=== PATIENT | female | born 1960 | race Caucasian/White ===

== ENCOUNTER 2020-04-01 15:31 | Outpatient (CLI) | payer OTHER, SELFPAY ==
--- NOTE | ~2020-04-01 | MM_ITS ---
EXAMINATION: MM screening [facility] BI w vini HISTORY: Screening mammogram TECHNIQUE: Craniocaudal and mediolateral oblique 3-D tomosynthesis images were obtained and synthetic 2-D images were generated. CAD analysis was submitted and interpreted. COMPARISON: 08/29/2017, 04/23/2015 bilateral digital screening mammogram examinations BREAST PARENCHYMAL COMPOSITION: The breasts are almost entirely fatty. FINDINGS: New circumscribed 3 mm opacity is noted anteriorly in the mid inner right breast (craniocau roxie Tomosynthesis image 30/76). Diagnostic right mammogram is recommended, with targeted ultrasound c orrelation. Otherwise there is no evidence of suspicious mass, calcification, or architectural distortion to sugg est malignancy in either breast. There has been no other suspicious interval change. IMPRESSION: 1. New 3 mm circumscribed opacity in anterior mid inner right breast 2. Diagnostic right mammogram and targeted right breast ultrasound examination are recommended. BI-RADS Category 0: Incomplete: Needs additional imaging evaluation. Reviewed, dictated and finalized at location A.
--- NOTE | ~2020-04-01 | DEXA_ITS ---
Bone Density Report Name: Dariana Valverde Age: 59 Sex: Female Ethnicity: White Date of : 1960 Indication: osteopenia; postmenopausal Referring Provider: Radha Woo Study: Bone densitometry was performed. Exam Date: April 01, 2020 Accession number: [id number] Bone Density: Region BMD T-score Z-score Classification AP Spine (L1-L4) 0.819 -2.1 -0.7 Osteopenia Femoral Neck (Left) 0.771 -0.7 0.5 Normal Total Hip (Left) 0.840 -0.8 0.0 Normal Total Hip Bilateral Avg 0.832 -0.9 -0.1 Normal Femoral Neck (Right) 0.703 -1.3 -0.1 Osteopenia Total Hip (Right) 0.822 -1.0 -0.1 Normal World Health Organization criteria for BMD impression classify patients as: Normal (T-score at or above -1.0), Osteopenia (T-score between -1.0 and -2.5), or Osteoporosis (T-score at or below -2.5). 10-year Fracture Risk(1): Major Osteoporotic Fracture 6.9% Hip Fracture 0.8% Reported Risk Factors: [place] (), Neck BMD=0.703, BMI=31.8, smoking (1) FRAX(R) Version 3.08. Fracture probability calculated for an untreated patient. Fracture probability may be lower if the patient has received treatment. Previous Exams: Region Exam Age BMD T-score BMD Change BMD Change Date g/cm2 vs Baseline vs Previous AP Spine(L1-L4) 04/01/2020 59 0.819 -2.1 -0.083(-9.2%)* -0.011(-1.3%) 08/29/2017 57 0.830 -2.0 -0.072(-8.0%)* -0.072(-8.0%)* 04/23/2015 54 0.902 -1.3 Total Hip(Left) 04/01/2020 59 0.840 -0.8 -0.016(-1.8%) 0.023(2.8%) 08/29/2017 57 0.817 -1.0 -0.039(-4.5%)* -0.039(-4.5%)* 04/23/2015 54 0.856 -0.7 Total Hip(Right) 04/01/2020 59 0.822 -1.0 0.001(0.1%) 0.009(1.1%) 08/29/2017 57 0.813 -1.1 -0.008(-1.0%) -0.008(-1.0%) 04/23/2015 54 0.822 -1.0 *Denotes significance at 95% confidence level, LSC for AP Spine = 0.022 g/cm2, LSC for Total Hip = 0.027 g/cm2 Clinical Information Provided by Patient: Smokes Has used the following medications: Vitamin D, Calcium Patient maximum height was 68 Menopause Age: 53 Drinks caffeinated beverages Onset of menses at age 13 Number of children 3 Impression: The patient has low bone mass, based on the Total Spine T-score. The patient has an estimated ten-year risk of hip fracture of 0.8% and an estimated ten-year risk of major fracture of 6.9%, based on the WHO FRAX algorithm. The patient has risk factors, including: smoking. No significant bone loss was observed. Discus
== END 2020-04-01 15:32 | disposition home or self-care (01) ==
LOC: ANHIMG 15:37
PROVIDERS: PCP Family Medicine; Visit Provider Obstetrics & Gynecology
DX: Z12.31 Encounter for screening mammogram for malignant neoplasm of breast (principal); M85.88 Other specified disorders of bone density and structure, other site; R92.8 Other abnormal and inconclusive findings on diagnostic imaging of breast
CPT/HCPCS: 77063; 77067; 77080

== ENCOUNTER 2020-04-14 11:20 | Outpatient (CLI) | payer OTHER, SELFPAY ==
--- NOTE | ~2020-04-14 | CT_ITS ---
EXAMINATION: CT sinus wo con DATE: 04/14/2020 12:06 INDICATION: Chronic sinusitis TECHNIQUE: Computed tomography (CT) of the paranasal sinuses was performed without intravenous contra st. The dose-length product was 295.93 mGy-cm. Automated exposure control and iterative reconstructio n technique were employed. COMPARISON: None FINDINGS: There is extensive mucosal thickening of the right maxillary sinus with complete opacificat ion in the mucoperiosteal reaction. There is expansion of the maxillary sinus with occlusion of the r ight ostiomeatal unit. There is mucosal thickening of the right ethmoid and frontal sinuses. Mastoids are pneumatized. Leftward nasal septal deviation. Left ostiomeatal unit is patent. IMPRESSION: 1. Chronic sinusitis with complete opacification of the right maxillary sinus with associated mucoper iosteal reaction and occlusion of the ostiomeatal unit. Reviewed, dictated and finalized at location B. IMPRESSION: 1. Chronic sinusitis with complete opacification of the right maxillary sinus w ith associated mucoperiosteal reaction and occlusion of the ostiomeatal unit.
== END 2020-04-14 11:21 | disposition home or self-care (01) ==
PROVIDERS: PCP Family Medicine
DX: J32.9 Chronic sinusitis, unspecified (principal)
CPT/HCPCS: 70486

== ENCOUNTER 2020-04-23 12:31 | Outpatient (CLI) | payer OTHER, SELFPAY ==
--- NOTE | ~2020-04-23 | MMUS_ITS ---
EXAMINATION: MM diagnostic mammo unilat RT, US breast RT limited HISTORY: Follow-up right breast mass TECHNIQUE: Additional 3-D tomosynthesis images of the right breast were performed and synthetic 2-D i mages were generated. CAD analysis was submitted and interpreted. High resolution right breast ultras ound was performed. COMPARISON: 04/01/2020 BREAST PARENCHYMAL COMPOSITION: Breast composed of scattered areas of fibroglandular density FINDINGS: MAMMOGRAPHIC FINDINGS: There is a focal mass measuring 5 mm maximum dimension at the 3:00 position of the right breast, midd le third. ULTRASOUND: Right breast ultrasound: At 3:00, 5 cm from the nipple, there is a 5 mm cyst corresponding to the mammographic finding. No cristian picious masses to suggest malignancy. IMPRESSION: 1. No evidence for malignancy in the right breast. Benign findings. 2. Routine yearly screening mammogram and regular clinical breast examination are recommended. BI-RADS Category 2: Benign finding(s). Reviewed, dictated and finalized at location A. IMPRESSION: 1. No evidence for malignancy in the right breast. Benign findings. 2. Routine yearly screening mammogram and regular clinical breast examination a re recommended. BI-RADS Category 2: Benign finding(s).
== END 2020-04-23 12:32 | disposition home or self-care (01) ==
PROVIDERS: PCP Family Medicine; Visit Provider Obstetrics & Gynecology
DX: R92.8 Other abnormal and inconclusive findings on diagnostic imaging of breast (principal)
CPT/HCPCS: 76642; 77065

== ENCOUNTER 2021-04-03 11:23 | Emergency (ER) | payer OTHER, SELFPAY ==
[2021-04-03 11:27] VITALS: BP 152/93; PULSE 66; RESP 18; TEMP 36.9; O2SAT 99
--- NOTE | 2021-04-03 11:52 | ED.SKABFB ---
HPI - Skin/Abscess/Foreign Bdy General Chief complaint: Skin/Abscess/Foreign Body Stated complaint: insect bite low abd Time Seen by Provider: 04/03/21 11:44 Source: patient Mode of arrival: ambulatory Limitations: no limitations History of Present Illness HPI narrative: Patient is a 60-year-old female complaining of possible insect bite in the pubis area, redness and mild swelling started 4 days ago. Patient denies any fever or chills. Patient denies any extremity swelling. No other complaints. Related Data Allergies Allergy/AdvReac Type Severity Reaction Status Date / Time morphine Allergy Intermediate ITCHING Verified 04/03/21 11:30 latex Allergy Unknown Redness of Verified 04/03/21 11:30 Skin Penicillins Allergy Unknown Rash Verified 04/03/21 11:30 Sulfa (Sulfonamide Allergy Unknown Unknown Verified 04/03/21 11:30 Antibiotics) Review of Systems Review of Systems: All systems reviewed & are unremarkable except as noted in HPI and below PMFSH Family History Family History Father Family history of malignant neoplasm Mother Family history of diabetes mellitus in first degree relative Family history of heart disease in male family member before age 55 Social History Social History Smoking status: Former smoker Smoking end date: 10/01/87 Alcohol intake: current Comments Past medical history: None Exam Const: General: no acute distress and alert Orientation/consciousness: patient oriented x3 HENMT: Head: normal to inspection Eyes: Conjunctivae: conjunctivae normal Neck: Neck: normal visual inspection Resp: Effort & Inspection: normal respiratory effort Skin: Other: Erythematous, swollen, mildly tender area measuring approximately 3 x 4 cm, nonfluctuant Neuro: General: patient oriented x3 and moves all extremities Extrem: General: normal to inspection Course Vital Signs Vital signs: Vital Signs Temperature 36.9 C 04/03/21 11:27 Pulse Rate 66 04/03/21 11:27 Respiratory Rate 18 04/03/21 11:27 Blood Pressure 152/93 H 04/03/21 11:27 Pulse Oximetry 99 04/03/21 11:27 Temperature 36.9 C 04/03/21 11:27 Pulse Rate 66 04/03/21 11:27 Respiratory Rate 18 04/03/21 11:27 Blood Pressure 152/93 H 04/03/21 11:27 Pulse Oximetry 99 04/03/21 11:27 Discharge Plan Discharge Clinical Impression: Cellulitis Qualifiers: Site of cellulitis: unspecified site Qualified Code(s): L03.90 - Cellulitis, unspecified Patient Disposition: Home, Self-Care Condition: Stable Instructions: Antibiotic Form, Cellulitis (ED) Prescriptions: New doxycycline monohydrate 100 mg capsule 100 mg PO BID Qty: 14 RF: 0 Follow-up/Referrals: Anamika,Denia Alberto MD [Primary Care Provider] - 04/04/21 Time of Disposition: 12:04
== END 2021-04-03 12:11 | disposition home or self-care (01) ==
PROVIDERS: Emergency Provider Emergency Medicine; PCP Family Medicine
DX: L03.90 Cellulitis, unspecified (principal)
CPT/HCPCS: 99283

== ENCOUNTER 2021-05-19 16:52 | Outpatient (CLI) | payer OTHER, SELFPAY ==
--- NOTE | ~2021-05-19 | MM_ITS ---
EXAMINATION: MM screening [facility] BI w vini HISTORY: Screening mammogram TECHNIQUE: Craniocaudal and mediolateral oblique 3-D tomosynthesis images were obtained and synthetic 2-D images were generated. CAD analysis was submitted and interpreted. COMPARISON: 04/23/2020, 04/01/2020, 08/29/2017 BREAST PARENCHYMAL COMPOSITION: The breasts are almost entirely fatty. FINDINGS: A cyst is again noted in the inner right breast. There is no evidence of suspicious mass, c alcification, or architectural distortion to suggest malignancy in either breast. There has been no s uspicious interval change. IMPRESSION: 1. No mammographic evidence of malignancy. 2. Recommend routine screening mammography in one year. BI-RADS Category 2: Benign finding(s). Reviewed, dictated and finalized at location A.
== END 2021-05-19 16:53 | disposition home or self-care (01) ==
LOC: ANHIMG 16:54
PROVIDERS: PCP Family Medicine; Visit Provider Obstetrics & Gynecology
DX: Z12.31 Encounter for screening mammogram for malignant neoplasm of breast (principal)
CPT/HCPCS: 77063; 77067

== ENCOUNTER 2022-03-16 18:54 | Emergency (ER) | payer OTHER, SELFPAY ==
[2022-03-16 19:02] VITALS: BP 150/97; PULSE 55; RESP 20; TEMP 36.7; O2SAT 98
--- NOTE | 2022-03-16 20:36 | PC.NURSE ---
no answer x1 at triage
--- NOTE | 2022-03-16 20:56 | PC.NURSE ---
no answer at triage
== END 2022-03-16 20:56 | disposition left against medical advice (07) ==
LOC: ANHED 21:00
DX: R07.81 Pleurodynia (principal)
CPT/HCPCS: 82962; 99199

== ENCOUNTER 2023-02-10 09:22 | Outpatient (CLI) | payer OTHER, SELFPAY ==
--- NOTE | ~2023-02-10 | MM_ITS ---
EXAMINATION: MM screening [facility] BI w vini HISTORY: Screening mammogram TECHNIQUE: Craniocaudal and mediolateral oblique 3-D tomosynthesis images were obtained and synthetic 2-D images were generated. CAD analysis was submitted and interpreted. COMPARISON: 05/19/2021, 04/23/2020, 04/01/2020 BREAST PARENCHYMAL COMPOSITION: The breasts are almost entirely fatty. FINDINGS: RIGHT BREAST: No suspicious mass, calcification, or architectural distortion are identified to sugges t malignancy. There has been no suspicious interval change. LEFT BREAST: There is a possible mass in the anterior third of the inner breast best appreciated and mediolateral oblique tomosynthesis image 61/91. IMPRESSION: 1. Possible left breast mass. 2. Additional mammographic views and possible breast ultrasound are recommended. BI-RADS Category 0: Incomplete: Needs additional imaging evaluation. Reviewed, dictated and finalized at location A. IMPRESSION: 1. Possible left breast mass. 2. Additional mammographic views and possible breast ultrasound are recommended . BI-RADS Category 0: Incomplete: Needs additional imaging evaluation.
== END 2023-02-10 09:23 | disposition home or self-care (01) ==
LOC: ANHIMG 09:24
PROVIDERS: PCP Physician Assistant; Visit Provider Physician Assistant
DX: Z12.31 Encounter for screening mammogram for malignant neoplasm of breast (principal); R92.8 Other abnormal and inconclusive findings on diagnostic imaging of breast
CPT/HCPCS: 77063; 77067

== ENCOUNTER 2023-02-20 11:29 | Outpatient (CLI) | payer OTHER, SELFPAY ==
--- NOTE | ~2023-02-20 | MMUS_ITS ---
EXAMINATION: MM diagnostic [facility] LT w vini, US breast LT limited HISTORY: Possible left breast mass on screening mammogram TECHNIQUE: Additional 3-D tomosynthesis images of the left breast were performed and synthetic 2-D im ages were generated. CAD analysis was submitted and interpreted. High resolution limited left breast ultrasound was performed. COMPARISON: 02/10/2023, 05/19/2021, 04/01/2020 FINDINGS: MAMMOGRAPHIC FINDINGS: There is a 4 mm oval, obscured, equal density mass in the anterior third of the inner breast at the 9 :00 location, 5 cm from the nipple. No suspicious calcification or architectural distortion are ident ified. ULTRASOUND: There is a 4 mm cyst at the 9:00 location, 3 cm from the nipple corresponding to mammographic finding in question. IMPRESSION: 1. Small left breast cyst corresponding to the mammographic finding. No mammographic or sonographic e vidence of malignancy. 2. Recommend routine screening mammography in one year. BI-RADS Category 2: Benign finding(s). Reviewed, dictated and finalized at location A. IMPRESSION: 1. Small left breast cyst corresponding to the mammographic finding. No mammogr aphic or sonographic evidence of malignancy. 2. Recommend routine screening mammography in one year. BI-RADS Category 2: Benign finding(s).
== END 2023-02-20 11:30 | disposition home or self-care (01) ==
PROVIDERS: PCP Physician Assistant; Visit Provider Physician Assistant
DX: R92.8 Other abnormal and inconclusive findings on diagnostic imaging of breast (principal)
CPT/HCPCS: 76642; 77061; 77065; G0279

== ENCOUNTER 2023-06-22 23:58 | Emergency (ER) | payer OTHER, SELFPAY | END 2023-06-23 00:28 | disposition left against medical advice (07) | PROVIDERS: PCP Physician Assistant | DX: Z53.21 Procedure and treatment not carried out due to patient leaving prior to being seen by health care provider (principal) | CPT/HCPCS: 99199 ==

== ENCOUNTER 2023-08-30 14:52 | Outpatient (CLI) | payer OTHER, SELFPAY ==
--- NOTE | ~2023-08-30 | DEXA_ITS ---
Bone Density Report Name: MIS JEAN Age: 63 Sex: Female Ethnicity: White Date of : 1960 Indication: postmenopausal; screening for osteoporosis; height loss; Referring Provider: SIMRAN, MARGARITA Patel Study: Bone densitometry was performed. Exam Date: August 30, 2023 Accession number: [id number] Bone Density: Region BMD T-score Z-score Classification AP Spine(L1-L4) 0.821 -2.1 -0.5 Osteopenia Femoral Neck (Left) 0.747 -0.9 0.5 Normal Total Hip (Left) 0.884 -0.5 0.6 Normal Femoral Neck (Right) 0.724 -1.1 0.3 Osteopenia Total Hip (Right) 0.825 -1.0 0.1 Normal Total Hip Mean 0.854 -0.8 0.4 Normal World Health Organization criteria for BMD impression classify patients as: Normal (T-score at or above -1.0), Osteopenia (T-score between -1.0 and -2.5), or Osteoporosis (T-score at or below -2.5). 10-year Fracture Risk: FRAX not reported because: Treated for osteoporosis Clinical Information Provided by Patient: Is being treated for osteoporosis Has used the following medications: Fosamax (i.e. alendronate), Vitamin D, Calcium Patient maximum height was 68 Menopause Age: 53 Drinks caffeinated beverages Onset of menses at age 13 Number of children 3 Impression: The patient has low bone mass, based on the Total Spine T-score. Discussion: It is important to ask patients whether they are taking their medications and to encourage continued and appropriate compliance with their osteoporosis therapies to reduce fracture risk. It is also important to review their risk factors and encourage appropriate calcium and vitamin D intakes, exercise, fall prevention and other lifestyle measures. Follow-Up: Consider a repeat BMD and Vertebral Fracture Assessment (VFA) exam in 2 years or sooner if medically necessary, to reassess this patient's status. Reported by: BUL on 08/30/2023 3:21:00 PM. Reviewed, dictated and finalized at location AWendy SARAH
== END 2023-08-30 14:53 | disposition home or self-care (01) ==
LOC: ANHIMG 14:58
PROVIDERS: PCP Physician Assistant; Visit Provider Nurse Practitioner Obstetrics & Gynecology
DX: M85.80 Other specified disorders of bone density and structure, unspecified site (principal); M85.88 Other specified disorders of bone density and structure, other site; M85.851 Other specified disorders of bone density and structure, right thigh
CPT/HCPCS: 77080

== ENCOUNTER 2024-03-13 09:16 | Outpatient (CLI) | payer OTHER, SELFPAY ==
--- NOTE | ~2024-03-13 | MM_ITS ---
EXAMINATION: MM screening [facility] BI w vini HISTORY: Screening TECHNIQUE: Craniocaudal and mediolateral oblique 3-D tomosynthesis images were obtained and synthetic 2-D images were generated. CAD analysis was submitted and interpreted. COMPARISON: Comparison to multiple prior studies sequentially, with oldest reviewed study dated 08/02. BREAST PARENCHYMAL COMPOSITION: Not Dense: Breast are almost entirely fatty. FINDINGS: There is no evidence of suspicious mass, calcification, or architectural distortion to sugg est malignancy in either breast. There has been no suspicious interval change. IMPRESSION: 1. No mammographic evidence of malignancy. 2. Recommend routine screening mammography in one year. BI-RADS Category 1: Negative Reviewed, dictated and finalized at location B.
== END 2024-03-13 09:17 | disposition home or self-care (01) ==
PROVIDERS: PCP Physician Assistant; Visit Provider Physician Assistant
DX: Z12.31 Encounter for screening mammogram for malignant neoplasm of breast (principal)
CPT/HCPCS: 77063; 77067

== ENCOUNTER 2025-04-16 15:20 | Outpatient (CLI) | payer OTHER, SELFPAY ==
--- NOTE | ~2025-04-16 | MM_ITS ---
EXAMINATION: MM screening radha BI w vini HISTORY: Screening TECHNIQUE: Craniocaudal and mediolateral oblique 3-D tomosynthesis images were obtained and synthetic 2-D images were generated. CAD analysis was submitted and interpreted. COMPARISON: Comparison to multiple prior studies sequentially, with oldest reviewed study dated 11/2019. BREAST PARENCHYMAL COMPOSITION: Not Dense: The breasts are almost entirely fatty. FINDINGS: There is no evidence of suspicious mass, calcification, or architectural distortion to sugg est malignancy in either breast. There has been no suspicious interval change. IMPRESSION: 1. No mammographic evidence of malignancy. 2. Recommend routine screening mammography in one year. BI-RADS Category 1: Negative Reviewed, dictated and finalized at location B.
--- OUTSIDE RECORDS SUMMARY | 2025-04-16 15:24 | XMS_ITS | Clinical Summary ---
Author Organization [facility] Address [address] [place] [id number] Care Team Providers Care Research And Evaluation Analyst Name Role Phone Unavailable Primary Care Provider Unavailabl e Social History Tobacco Use Types Packs/Day Years Used Date Smoking Tobacco: Never Assessed Comments Unknown Sex and Gender Information Value Date Recorded Sex Assigned at Not on file Legal Sex Female 12:29 PM CDT Gender Identity Not on file Sexual Orientation Not on file Plan of Treatment Health Maintenance Due Date Last Done Comments Cervical Cancer Screening Pa p Smear (Age 30 to 64) Every 3 Years 1960 Colorectal Cancer Screening Colonoscopy (10 Years) 1960 Annual Physical 1964 Hepatitis C 1979 DTaP, Tdap and Td Vaccines ( 1 - Tdap) 1980 Cervical Cancer Screening Pa p with HPV Testing (Age 30 to 64) Every 5 Years 1991 Cervical Cancer Screening with HPV 1991 Mammogram Screening 2001 Pneumococcal Vaccine: 50+ Ye ars (1 of 1 - PCV) 2011 Zoster Vaccines (1 of 2) 2011 COVID-19 Vaccine (2023-2 5 season) 2024 RSV Immunization or 60+ Years (1 - 1-dose 75+ series) 2036 Meningococcal B Vaccine Aged Out No l onger eligible based on patient's age to complete this topic Meningococcal Vaccine Aged Out No louise brittany eligible based on patient's age to complete this topic RSV Immunizations Under 20 Months Aged Out No longer eligible based on patient's age to complete this topic Insurance [employer]
--- OUTSIDE RECORDS SUMMARY | 2025-04-16 15:24 | XMS_ITS | Encounter Summary ---
Author Organization [facility] Address [address] [place] [address] Care Team Providers Care Biomedical Analytical Scientist Name Role Phone Kadeem Hernandez MD Primary Care Provider Un available Baljeet Beverly RDMS Primary Care Provider U navailKadeem Cline MD Primary Care Provider Un available Denia Beverly MD Primary Care Provider [phone]- [phone] Malissa Mercedes PA-C Primary Care Provider [phone] Abisai Castillo MD Unavailable [phone] Reason for Visit * Reason Onset Date Comments Future Appointment 03/20/2019 Encounter Details Date Type Department Care Team (Late st Contact Info) Description 03/20/2019 Telephone [facility] [address] [address] Jose Lubin MD [address] [place] [address] Future Appointment Social History Tobacco Use Types Packs/Day Years Used Date Smoking Tobacco: Never Assessed Comments Unknown Sex and Gender Information Value Date Recorded Sex Assigned at Not on file Legal Sex Female 8:06 AM CDT Gender Identity Not on file Sexual Orientation Not on file documented as of this encounter Miscellaneous Notes * Telephone Encounter - Beatris Amato - 03/20/2019 1:09 PM CDT Called patient to remind her to bring her audio gram to her appointment tomorrow 03/[address] Lubin. If the patient has not had a hearing test within the last 3 months, the appointment will need to be rescheduled. documented in this encounter Plan of Treatment Upcoming Encounters Date Type Department Care Team (Late st Contact Info) Description 05/05/2025 1:30 PM CDT Office Visit [facility] [address] [facility] [address] [place] [phone] Kenya Cruz, RIM TURNING MACHINE OPERATOR-JANITORIAL MANAGER [address] [facility] [address] [place], [place] [id number] 05/05/2025 2:30 PM CDT Office Visit [facility] Weight Management Services [address] [place] [phone] Aura Castillo, RIM TURNING MACHINE OPERATOR-JANITORIAL MANAGER [address] [place] [address] documented as of this encounter Visit Diagnoses Not on filedocumented in this encounter Additional Health Concerns Infection Onset Date Last Indicated Resolved Time COVID-19 Under Investigation 05/21/2020 05/21/2020 05/22/2020 3:59 PM CDT documented as of this encounter Care Teams Biomedical Analytical Scientist Relationship Specialty Start Date End Date Kadeem Hernandez MD PCP - General 01/27/19 07/20/20 Baljeet Beverly, [facility] PCP - General 07/21/20 Kadeem Hernandez MD PCP - General 07/26/20 08/04/20 Denia Beverly MD [address] [place] [phone] PCP - General Family Medicine 12/02/20 07/26/23 Malissa Mercedes PA-C [address] [place] [phone] PCP - General 07/27/23 Abisai Castillo MD [address] [facility] [address] [place] [address] Cardiovascular Disease 10/03/24 documented as of this encounter
--- OUTSIDE RECORDS SUMMARY | 2025-04-16 15:24 | XMS_ITS | Clinical Summary ---
Author Organization [facility] Address [address] [place] [id number] Care Team Providers Care Inspector Government Property Name Role Phone Unknown, Notinfile Primary Care Provider Unavail able Allergies Active Allergy Reactions Criticality Noted Date Comments Adhesive Rash Medium 05/24/2020 Paper tape OK Latex Rash Medium 05/21/2020 Meclizine Other (See comments) Low 06/28/2019 Extreme fatigue/sleep Extreme fatigue/sleep Extreme fatigue/sleep Penicillins Hives,Other (See comments),Urticaria Medium 03/26/2015 Other reaction(s): Other (see Comments), Urticaria Sulfa (Sulfonamide Antibiotics) Hives,Rash,Other (See comments) High 03/26/2015 Henoch-Schonlein purpura Other reaction(s): Other (see Comments) Henoch-Schonlein purpura Medications diltiaZEM CD (CARDIZEM CD) 360 mg 24 hr capsuleIndicati ons:hypertensio n Take 360 mg by mouth every morning Active cholecalciferol (VITAMIN D-3) 25 mcg (1,000 unit) tabletIndicatio ns:Vitamin D Deficiency Take 1,000 Units by mouth every morning Active alendronate (FOSAMAX) 70 mg tabletIndicatio ns:Post-Menopau betty Osteoporosis,Sa 's Take 70 mg by mouth every 7 days 2 Active semaglutide (OZEMPIC) 0.25 mg or 0.5 mg(2 mg/1.5 mL) pen injector injectionIndica tions:sunday for weight loss Inject 0.25 mg under the skin every 7 days Active prednisoLONE acetate (PRED FORTE) 1 % ophthalmic suspension Administer 1 drop into the right eye 4 (four) times a day 10 mL 1 2 Active ergocalciferol (VITAMIN D) 50,000 unit capsule Take 50,000 Units by mouth 2 Active losartan (COZAAR) 50 mg tablet Take 1 tablet (50 mg total) by mouth every morning 3 Active Active Problems Problem Noted Date Diagnosed Date Pseudophakia of both eyes 08/01/2023 Assessment & Plan (08/01/2023 12:41 PM CDT): Mild PCO OU, excellent BCVA sc OU Patient very happy with vision Patient to RTC for full exam, educated on importance S/P cataract extraction and insertion of intraocular lens, right 03/30/2022 Assessment & Plan (05/03/2022 10:57 AM CDT): POM #1 s/p CE/PCIOL Doing well, patient happy with vision finish pred forte taper Reviewed signs/symptoms endophthalmitis, RT/RD; patient to call immediately if any worsening vision, pain, redness, flashes/floaters/curtains. Released SRx today RTC for annual exam, PRN with issues Assessment & Plan (04/12/2022 7:51 AM CDT): POW #2 s/p CE/PCIOL OD - Doing well - D/C ofloxacin in 1 week - Taper prednisolone QID -> TID -> BID -> qday, per week - Reviewed signs/symptoms endophthalmitis, RT/RD; patient to call immediately if any worsening vision, pain, redness, flashes/floaters/curtains. - Okay to resume all activities, except refrain from swimming for one more week. Okay to discontinue Lee shield at night. - RTC 1 month for DFEx, MRx Assessment & Plan (03/30/2022 8:51 AM CDT): POD #1 s/p CE/PCIOL Doing well Prednisolone QID Ofloxacin QID Reviewed signs/symptoms endophthalmitis, RT/RD; patient to call immediately if any worsening vision, pain, redness, flashes/floaters/curtains No lifting/bending/swimming. Lee shield while sleeping, protective eyewear during day. RTC 1 week or PRN with problems Anisometropia 03/21/2022 Assessment & Plan (03/21/2022 10:58 AM CDT): Has right eye (OD) cataract extraction (CE)/IOL scheduled S/P cataract extraction and insertion of intraocular lens, left 02/09/2022 Assessment & Plan (03/21/2022 10:57 AM CDT): Excellent results. 1-mo PO Assessment & Plan (03/03/2022 2:21 PM CDT): NO evidence of infection today. The posterior chamber intraocular lens (PCIOL) is in good position, intraocular pressure (IOP) normotensive. No anterior chamber (AC) Rxn or vitreous cell/flare. Educated to continue Pred taper as instructed and to continue Systane tears. Educated discharge may be from left over medication in eye. No need for Ofloxacin at this point. Patient is also symptomatic for PVD left eye (OS). No retinal holes/tears/detachments noted. Educated on findings and will monitor. Educated on symptoms of retinal changes (increase in floaters, flashes, or curtain over vision and to RTC STAT or go to ED should occur). Will fax note to Dr. Love. Assessment & Plan (02/20/2022 11:45 AM CDT): POW #1 s/p CE/PCIOL OS - Doing well - D/C ofloxacin in 1 week - Taper prednisolone QID -> TID -> BID -> qday, per week - Reviewed signs/symptoms endophthalmitis, RT/RD; patient to call immediately if any worsening vision, pain, redness, flashes/floaters/curtains. - Okay to resume all activities, except refrain from swimming for one more week. Okay to discontinue Lee shield at night. - RTC 1 month for DFEx, MRx Assessment & Plan (02/09/2022 10:32 AM CDT): PO1D cataract extraction (CE)/PCIOL left eye (OS) The posterior chamber intraocular lens (PCIOL) is in good position, intraocular pressure (IOP) normotensive Educated on restrictions- no lifting/bending and to wear shield when sleeping. Will use Pred and Ofloxacin QID left eye (OS). 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 Pt desires cornea evaluation to discuss possible procedures to address irregular astigmatism. I reviewed with her the use of RGP after cataract surgery and to continue surface lubrication. Accommodative dysfunction 07/06/2020 Assessment & Plan (08/03/2020 10:10 AM BARK FITTER): Prefers over-minused Rx - can wear as SV for reading - trial framed multiple times today. Assessment & Plan (07/06/2020 10:33 AM CDT): Stop cyclogyl due to ESTRELLA/eyestrain. Pt most comfortable with -3.00 DS both eyes (OU) with base-in prism (BI) prism - recommend PAL for computer (trial frames this as well - happy with +2.25 add). Exophoria of both eyes 04/05/2020 Assessment & Plan (04/05/2020 3:04 PM CDT): Significant improvement with base-in prism (BI) prism both eyes (OU). Will Rx 3^ base-in prism (BI) split. Pt ed on adaptation to the Rx. Convergence insufficiency 04/05/2020 Assessment & Plan (04/05/2020 3:06 PM CDT): Pt ed. Rx prism both eyes (OU). S/P LASIK surgery of both eyes 04/05/2020 Assessment & Plan (08/16/2023 12:39 PM BARK FITTER): Patient deferred DFE today, educated on importance Tr PCO OU RTC for annual exam Assessment & Plan (12/07/2021 11:09 AM BARK FITTER): As mentioned previously, likely multi-facorial decrease in visual acuity (VA) both eyes (OU) BCVAwith scleral lens not significantly better than habitual soft contact lens (CL) with Dr. Muro. It is possible patient would still need gas permeable (GP) contact lens (CL) after surgery due to corneal irregularities. Assessment & Plan (07/26/2021 11:52 AM CDT): See above Assessment & Plan (07/13/2021 11:40 AM CDT): See above Assessment & Plan (11/03/2020 2:10 PM BARK FITTER): Update MRx - prefers small change for imed/computer Assessment & Plan (04/05/2020 3:06 PM CDT): Likely experiencing some abberations post LASIK (no e/o ectasia both eyes (OU) on Pentacam today). Will see how she does with the new glasses first- can consider Zenlens fitting in the future- oblate curve both eyes (OU) - she is interested. Dry eye syndrome of both eyes 01/23/2020 Assessment & Plan (08/16/2023 12:38 PM BARK FITTER): Patient states subjectively much improved since plug placement inferior Mild ABMD OU Continue artificial tears PRN RTC PRN Assessment & Plan (08/01/2023 12:40 PM CDT): Replaced punctal plug OS today, patient does think this helps with dryness Continue artificial tears PRN PRN with issues Assessment & Plan (03/21/2022 10:57 AM CDT): Ct systane prn Assessment & Plan (09/12/2021 6:00 PM BARK FITTER): She is status post (s/p) punctal plugs OU. Add hot compresses with lid scrubs to alleviate crusting of lashes and improve meibomian gland dysfunction (MGD). Recommend trail of lubricant eye drops 4 times/day. If still symptomatic,consider lid scrubs with Johnsons baby shampoo or with Ocusoft scrubs. Assessment & Plan (05/03/2021 1:56 PM CDT): Inserted new pplug right eye (OD) (0.7mm oasys) Assessment & Plan (03/03/2021 12:58 PM CDT): Inserted new lower 0.5mm punctal plug right eye (OD). Pt interested in contact lens (CL) wear - rec rigid gas permeable (RGP) vs scleral fitting with Dr. Muro. Assessment & Plan (07/07/2020 3:54 PM CDT): Punctal plugs inserted today. RTC to recheck refraction once the ocular surface improved. Continue lubricating eyedrops QID+ both eyes (OU). Assessment & Plan (05/13/2020 3:55 PM CDT): Punctal plugs in place, increased tbut, pt reports improved sx. Continue lubricating drops as needed. Assessment & Plan (05/10/2020 9:44 AM CDT): Recommend refresh/soothe/systane and celluvisc/genteal drops at night both eyes (OU). Inserted new punctal plug left eye (OS) today. Assessment & Plan (04/05/2020 3:04 PM CDT): Dosing ATS 6-8 x per day. No insurance coverage for Xiidara (she taken this in the past which helped her sx significantly). RTC for Isis test and punctal plugs next visit (discussed today w/patient). Monocular diplopia of both eyes 01/23/2020 Assessment & Plan (10/07/2020 1:34 PM BARK FITTER): Schedule scleral lens fitting at [facility]. Assessment & Plan (05/10/2020 9:47 AM CDT): Mod-severe ADRIANA - inconsistent responses with refraction today. Recommend scleral lens fitting to due irregular/flat corneas - will improve the quality of vision and visual acuity (VA). Assessment & Plan (04/05/2020 3:08 PM CDT): left eye (OS)>OD. No ectasia (Pentacam today). Ghosting improves binocularly with base-in prism (BI) prism. F/u 3 weeks vision check with new Rx. Discussed option for scleral lenses. Hypertension Migraine High myopia, both eyes (-6.00 OU) s/p LASIK OU Assessment & Plan (07/26/2021 11:52 AM CDT): Good GCC on OCT today See above Assessment & Plan (06/05/2020 12:44 PM CDT): More consistent today - will release glasses Rx (matches retinoscopy). Assessment & Plan (05/13/2020 3:55 PM CDT): Significant myopic shift. Normal macular OCT. Check HbA1C and glucose today. Assessment & Plan (05/10/2020 9:44 AM CDT): Continue with current glasses at this time - Re-check 2 weeks. Resolved Problems Problem Noted Date Diagnosed Date Resolved Date Combined forms of age-relate d cataract of both eyes 07/13/2021 04/12/2022 Assessment & Plan (12/07/2021 11:11 AM BARK FITTER): Assessment and Plan 1. Visually Significant Cataract of both eyes - Patient interested in having CE/IOL of the left eye - R/B/A of surgery discussed in detail with patient including but not limited to infection, bleeding, persistent inflammation, diplopia, ptosis, macular edema, need for further surgeries or procedures, need for spectacle correction after surgery, possible loss of vision, possible loss of the eye, and risks of anesthesia. Discussed that because of irregular astigmatism she will likely need scleral contact lens. -patient requests visit with cornea team to explore other treatment options - will have patient return for repeat testing given her hx of lasik and ABMD. Repeat topography and IOL master to ensure refractive stability. -Discussed that ABMD may limit her final visual acuity and that if she remains with diplopia following surgery we will likely have her meet with neuro-ophthalmology team. Today she is without measurable strabismus at distance. She does have hx of convergence insufficiency and we discussed that this will persist after cataract surgery. - Target refraction was discussed with the patient. We discussed near, distance, and monovision; we also discussed multifocal, EDOF, and toric lenses. Discussed possible glare/halo following multifocal lenses. I recommend monofocal lens in her case. Planned Operation: CE/IOL of the left eye Time: 25 Anesthesia: MAC Local: topical Special equipment: Preop meds: None Med Clearance: CPAP IOL Master: to be scheduled with topography Assessment & Plan (09/12/2021 5:57 PM BARK FITTER): Assessment and Plan 1. Visually Significant Cataract of the right eye>left eye - Patient interested in having CE/IOL of the right eye - R/B/A of surgery discussed in detail with patient including but not limited to infection, bleeding, persistent inflammation, diplopia, ptosis, macular edema, need for further surgeries or procedures, need for spectacle correction after surgery, possible loss of vision, possible loss of the eye, and risks of anesthesia. Discussed that because of irregular astigmatism she will likely need scleral contact lens. -patient requests visit with cornea team to explore other treatment options, - will have patient return in 4 weeks to finalize surgery discussion - Target refraction was discussed with the patient. We discussed near, distance, and monovision; we also discussed multifocal, EDOF, and toric lenses. Discussed possible glare/halo following multifocal lenses. I recommend monofocal lens in her case. Assessment & Plan (07/26/2021 11:56 AM CDT): As mentioned previously, likely multi-facorial decrease in visual acuity (VA) both eyes (OU) BCVA today with scleral lens not significantly better than habitual soft contact lens (CL). Will consult with Dr. Love on possible cataract extraction (CE). Possible patient would still need gas permeable (GP) contact lens (CL) after surgery due to corneal irregularities. Will consider LUIS CARLOS corrected lenses if cataract extraction (CE) not warranted at this time. Assessment & Plan (07/13/2021 11:40 AM CDT): Decreased vision likely multi-factorial. Looking at past Pentacam, patient does have some irregular astigmatism both eyes (OU), right eye (OD) > left eye (OS). 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 Patient has had quite a lot of regression since time of surgery, would not be surprised if Pentacam/topography has changed. Patient also has some likely visually significant changes both eyes (OU) from NS/coritical changes right eye (OD) > left eye (OS) Due to irregularity of cornea, will have patient RTC to for contact lens (CL) eval/vision trial to see how much vision improves. If to a satisfactory level, will recommend new Pentacam with full contact lens (CL) eval. If vision does not improve will refer for a cat eval. Educated patient that even if she needs cataract surgery may in the end need a contact lens (CL) as well due to corneal irregularity. RTC for scheduled visits Immunizations Immunization Administration Dates Next Due Hep A, Adult 12/13/2014 Influenza, Quadrivalent, Split, Intramuscular PPD TEST 04/30/2018 Surgical History Surgery Date Site/Laterality Comments REFRACTIVE SURGERY Bilateral SECTION 1989,1991,1995 x3 LAPAROSCOPIC GASTRIC BANDING 10/01/2004 - 09/30/2005 NECK SURGERY [id number] neck lift CATARACT EXTRACTION 02/08/2022 Left Medical History Medical History Date Comments Hypertension Migraine High myopia, both eyes (-6.00 OU) s/p LASIK OU Dry eye syndrome of both eyes 01/23/2020 PONV (postoperative nausea and vomiting) 3 c sections Combined forms of age-related cataract of both e yes 07/13/2021 Family History Medical History Relation Name Comments Leukemia Father Diabetes Mother Heart disease Mother Anesthesia problems Neg Hx Relation Name Status Comments Father Mother Social History Tobacco Use Types Packs/Day Years Used Date Smoking Tobacco: Never Smokeless Tobacco: Never AUDIT-C Answer Date Recorded Q1: How often do you have a drink containing alcohol? Never 03/16/2022 Q2: How many drinks containi ng alcohol do you have on a typical day when you are drinking? Patient does not drink Q3: How often do you have si x or more drinks on one occasion? 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 file Not on file Not on fi le Obstetrics History Last Filed Vital Signs Vital Sign Reading Time Taken Comments Blood Pressure 142/88 03/29/2022 4:40 PM CDT Pulse 64 03/29/2022 4:40 PM CDT Temperature 36.4 C (97.5 F) 03/29/2022 4:17 PM CDT Respiratory Rate 24 03/29/2022 4:40 PM CDT Oxygen Saturation 97% 03/29/2022 4:40 PM CDT Inhaled Oxygen Concentration - - Weight 97.5 kg (215 lb) 03/16/2022 11:45 AM CDT Height 170.2 cm (5' 7) 03/16/2022 11:45 AM CDT Body Mass Index 33.67 03/16/2022 11:45 AM CDT Plan of Treatment Health Maintenance Due Date Last Done Comments Breast Cancer Screening-Mammogram 1961 Cervical Cancer Screening 1961 Colon Cancer Screening-Colonoscopy 1961 Depression Screening 1961 Hepatitis C Screening 1961 DTaP/Tdap/Td Vaccine (1 - Tdap) 1972 Hepatitis B Screening 1979 Regular Well Visit/Exam 18-64 1979 Zoster Vaccine (1 of 2) 2011 Covid-19 Vaccine (2023-2 5 season) 2024 07/23/2021, 07/13/2021, 12/03/2020 Influenza Vaccine (#1) 2025 08/20/2020 Pneumococcal vaccine <65 Aged Out No longer eligible based on patient's age to complete this topic Medical Devices Implanted Type Area Junior Sales Representative Device Identifier Shelf Expiration Date Model / Serial / Lot [employer] Lens Iol Posterior Biconvex Optic Single Piece Envista 6.0x12.5 +19.5d Hydrophobic Acrylic [id number] - [id number] Implanted:Qty: 1 on 02/08/2022 by Rolan Love MD at [facility] Lens Left: Eye [employer] [id number] 09/30/2024 [id number] / / [employer] Lens Iol Posterior Biconvex Optic Single Piece Envista 6.0x12.5 +19.5d Hydrophobic Acrylic [id number] - [id number] Implanted:Qty: 1 on 03/29/2022 by Rolan Love MD at [facility] Right: Lens [employer] [id number] / / Insurance [facility] Care Teams Inspector Government Property Relationship Specialty Start Date End Date Unknown, Notinfile PCP - General 03/17/22
--- OUTSIDE RECORDS SUMMARY | 2025-04-16 15:24 | XMS_ITS | Clinical Summary ---
Author Organization [facility] Address [address] [place] [address] Care Team Providers Care Belt Brander Name Role Phone Malissa Mercedes PA-C Primary Care Provider Abisai Castillo MD Unavailable [phone] Source Comments [facility],non-owned Affiliates and Associated Physician Practices is amultiple site organization consisting of ambulatory clinics and hospital sitesin [place], [place], [place] and [place]. This disclosure is being madepursuant to the Care Everywhere program and may not contain all information available regarding this patient. Last updated 18.[facility] Allergies Active Allergy Reactions Criticality Noted Date Comments Adhesive Sensitivity Rash Medium 05/24/2020 Paper tape OK Latex Rash Medium 05/21/2020 Meclizine Other Low 06/28/2019 Extreme fatigue/sleep Extreme fatigue/sleep Morphine Itching 04/30/2018 Penicillins Urticaria Medium 04/30/2018 Sulfa Drugs Rash Medium 04/30/2018 Medications * Be aware that medications may not be up to date on this document. Alwaysverify current medications with the patient. calcium carbonate-tim min D 600-400 MG-UNIT tablet Take 1 (one) tablet by mouth once daily Active Moreland-3 Fatty Acids (FISH OIL PO) Take 1,200 mg by mouth once daily as needed Active losartan (Cozaar) 25 MG tablet Take 1 (one) tablet by mouth once daily Active testosterone 5 mg/gram cream 5 mg/gm CREA Apply to affected area once daily Active Multiple Vitamins-Crisp als (HAIR SKIN & NAILS PO) Active ascorbic acid (Vitamin C) 250 MG tablet Take 1 (one) tablet by mouth once daily Active Probiotic Product (ÜberResearch) capsuleIndicat ions:Bariatric surgery status Take 1 (one) capsule by mouth once daily 30 capsule 3 11/06/19 25 Active acetaminophen (TYLENOL) 500 MG tabletIndicati ons:Bariatric surgery status Pt is to take 2 tabs po every 8 hours for basal pain. May take additional 1 tab twice daily if needed. Pt to not exceed 4000mg daily. 40 tablet 11/06/19 25 Active docusate sodium (Colace) 100 MG capsuleIndicat ions:Bariatric surgery status Take 1 (one) capsule by mouth 2 times daily 30 capsule 11/06/19 25 Active Additional Information Patient not taking.Reported on 03/23/2025 omeprazole (PriLOSEC) 20 MG capsuleIndicat ions:Cabrera's Esophagus Take 1 (one) capsule by mouth once daily Reasons: Cabrera's Esophagus 90 capsule 3 02/11/20 25 Active Progesterone 200 MG capsule TAKE 1 CAPSULE BY MOUTH EVERY DAY AT BEDTIME 03/13/20 25 Active acyclovir (Zovirax) 400 MG tablet Take 1 (one) tablet by mouth 3 times daily Active Tirzepatide-We ight Management 2.5 MG/0.5ML SOLNIndication s:Obesity, Class III, BMI 40-49.9 (morbid obesity) ([facility]) Inject 2.5 mg subcutaneously every 7 days (once a week) 2 mL 04/07/20 25 Active Progesterone 100 MG capsule Take 1 (one) capsule by mouth at bedtime 025 Discontin ued(List Clean-Up) Tirzepatide-We ight Management 2.5 MG/0.5ML SOLNIndication s:Obesity, Class III, BMI 40-49.9 (morbid obesity) ([facility]) Inject 2.5 mg subcutaneously every 7 days (once a week) 2 mL 1 02/10/20 25 025 Discontin ued(Reord er) Tirzepatide-We ight Management 2.5 MG/0.5ML SOLNIndication s:Obesity, Class III, BMI 40-49.9 (morbid obesity) ([facility]) Inject 2.5 mg subcutaneously every 7 days (once a week) 2 mL 04/07/20 25 025 Discontin ued(Dose Adjustmen t) Active Problems Problem Noted Date Diagnosed Date Smoking 04/01/2023 Overview (12/31/2024): IMO 12/31/2024 Snoring 03/30/2023 Gastric banding status 03/30/2023 Weight gain 03/30/2023 Malocclusion of teeth 05/22/2018 Essential (primary) hypertension 01/08/2017 Herpes simplex type 1 infection 03/26/2015 History of smoking Class 2 obesity due to exces s calories with body mass index (BMI) of 38.0 to 38.9 in adult Resolved Problems Problem Noted Date Diagnosed Date Resolved Date Vertigo 03/21/2019 03/30/2023 Concussion with no loss of consciousness 03/21/2019 01/19/2021 TMJ (temporomandibular joint syndrome) 05/22/2018 03/30/2023 Renal function test abnormal 01/08/2017 01/19/2021 Hypertensive disorder 03/26/20152022 Chronic right maxillary sinusitis 03/30/2023 Chronic pansinusitis 023 Hypertrophy of both inferior nasal turbinates 03/30/2023 Deviated nasal septum 2022 Encounters Date Type Department Care Team Description 04/07/2025 Orders Only [facility] [address] [place] [phone] Sarah Mcmahan APRN-RICKY Obesity, Class III, BMI 40-49.9 (morbid obesity) ([facility]) 04/07/2025 Orders Only [facility] [address] [place] [phone] Sarah Mcmahan APRN-RICKY Obesity, Class III, BMI 40-49.9 (morbid obesity) ([facility]) 04/07/2025 Telephone [facility] [address] [place] [phone] Sarah Mcmahan APRN-CNP Med Question 03/23/2025 2:30 PM CDT Office Visit [facility] [address] [place] [phone] Sarah Mcmahan APRN-CNP Obesity, Class II, BMI 35-39.9 (Primary Dx); H/O laparoscopic adjustable gastric banding; Cabrera's esophagus without dysplasia; Essential (primary) hypertension; RUBIA (obstructive sleep apnea); Dyslipidemia 03/20/2025 Refill [facility] [address] [place] [phone] Sarah Mcmahan APRN-CNP Refill Request 03/04/2025 Refill [facility] [address] [place] [phone] Araceli Araujo DO MEDICATION REFILL 02/10/2025 Orders Only [facility] [address] [place] [phone] Sarah Mcmahan APRN-CNP 02/10/2025 Refill [facility] [address] [place] [phone] Sarah Mcmahan APRN-CNP Refill Request 02/09/2025 12:00 PM CDT - 02/09/2025 11:59 PM CDT Hospital Encounter [facility] [address] [place] [address] Araceli Araujo DO Family Medicine Discharge Disposition: Home or Self Care 02/09/2025 10:30 AM CDT Office Visit [facility] [address] [place] [phone] Araceli Araujo DO Obesity, Class III, BMI 40-49.9 (morbid obesity) (HCC) (Primary Dx); Hypercalcemia; H/O laparoscopic adjustable gastric banding; Cabrera's esophagus without dysplasia; Essential (primary) hypertension; RUBIA (obstructive sleep apnea); Dyslipidemia 02/09/2025 Results Follow-Up [facility] [address] [place] [phone] Araceli Araujo DO from Last 3 Months Immunizations Immunization Administration Dates Next Due COVID KAYLAH PRIMARY 18+YR 12/03/2020 HEP A VACCINE, ADULT 12/13/2014 Family History Medical History Relation Name Comments Cancer - Other Father leukemia Arthritis - Rheumatoid Mother Hypertension Mother [place] Syndrome Other Cousin - Aunts son Renal Disease Other Cousin - Aunts son Kidney t ransplant Relation Name Status Comments Father Alive Mother Alive Other Cousin - Aunts son Social History Tobacco Use Types Packs/Day Years Used Date Smoking Tobacco: Former Cigarettes Q uit: 03/2024 Smokeless Tobacco: Never Tobacco Cessation:Counseling Given: Not Answered Comments:quit - 1 cig once in a blue [place] Alcohol Use Standard Drinks/Week Comments Not Currently 0 (1 standard drink = 0.6 oz pur e alcohol) rarely AUDIT-C Answer Date Recorded Q1: How often do you have a drink containing alcohol? Never 11/10/2024 Q2: How many drinks containi ng alcohol do you have on a typical day when you are drinking? Patient does not drink Q3: How often do you have si x or more drinks on one occasion? Never 11/10/2024 PHQ-2 Answer Date Recorded Patient Health Questionnaire-2 Score 2 03/23/2025 Comments No Sex and Gender Information Value Date Recorded Sex Assigned at Not on file Legal Sex Female 8:06 AM CDT Gender Identity Not on file Sexual Orientation Not on file Last Filed Vital Signs Vital Sign Reading Time Taken Comments Blood Pressure 119/87 03/23/2025 2:58 PM CDT Pulse 74 03/23/2025 2:58 PM CDT Temperature 36.6 C (97.9 F) 03/23/2025 2:58 PM CDT Respiratory Rate 18 03/23/2025 2:58 PM CDT Oxygen Saturation 96% 03/23/2025 2:58 PM CDT Inhaled Oxygen Concentration 21% 12:30 PM CDT Weight 116.7 kg (257 lb 4.8 oz) 03/23/2025 2:58 PM CDT Height 172.7 cm (5' 8) 03/23/2025 2:58 PM CDT Body Mass Index 39.12 03/23/2025 2:58 PM CDT Plan of Treatment Upcoming Encounters Date Type Department Care Team (Late st Contact Info) Description 05/05/2025 1:30 PM CDT Office Visit [facility] [address] [place] [phone] Kenya Cruz, STUD SHEEP FARMER-WORSHIP PASTOR [address] [place] [address] 05/05/2025 2:30 PM CDT Office Visit [facility] [address] [facility] [place] [phone] Aura Castillo, STUD SHEEP FARMER-WORSHIP PASTOR [address] [place] [address] Health Maintenance Due Date Last Done Comments CT COLONOGRAPHY - COLON CA SCREENING 1961 FIT - COLON CA SCREENING 1961 FLEX SIG - COLON CA SCREENING 1961 MAMMOGRAM 1961 HIV SCREENING 1976 HEPATITIS C SCREENING 06/08/1979 DTAP/TDAP/TD VACCINES (1 - Tdap) 1980 PNEUMOCOCCAL VACCINE 50+ (1 of 1 - PCV) 2011 ZOSTER VACCINE (1 of 2) 2011 COVID-19 VACCINE (2 - season) 2024 12/03/2020 INFLUENZA VACCINE (#1) 2025 08/20/2020 COLON MONITORING 07/07/2026 07/07/2016 COLONOSCOPY - COLON CA SCREENING 07/07/2026 07/07/2016, 07/07/2015 (Done Outside Per Report) SCREENING FOR DIABETES 02/10/2028 , 07/25/2024, 05/13/2020 PAP SMEAR 02/25/2028 02/24/2025, 01/30, 02/22/2024, Additional history exists COLOGUARD (AGES 45-75) - COLON CA SCREENING 03/18/2028 03/18/2025 Colorectal Cancer Screening 03/18/2028 LIPID TESTING 07/25/2029 07/25/2024 Respiratory Syncytial Virus (RSV) Vaccine Pt: or over 60 yrs (1 - 1-dose 75+ series) 2036 DEPRESSION SCREENING Completed 11/20/2024, 07/03/20 HEPATITIS B VACCINE Aged Out No longe r eligible based on patient's age to complete this topic HIB VACCINE Aged Out No longer eligi ble based on patient's age to complete this topic HPV VACCINE Aged Out No longer eligi ble based on patient's age to complete this topic MENINGOCOCCAL (Group B) VACCINE SHARED DECISION-MAKING Aged Out No longer eligible based on patient's age to complete this topic MENINGOCOCCAL GROUPS A/C/Y/W VACCINE Aged Out No longer eligible based on patient's age to complete this topic Procedures Procedure Name Priority Date/Time Associated Diagnosis Comments COMPREHENSIVE METABOLIC PANEL Routine 02/09/2025 12:01 PM CDT Hypercalcemia LIPID PROFILE Routine 07/25/2024 10:49 AM CDT H/O laparoscopic adjustable gastric banding Pre-op testing Obesity (BMI 30-39.9) COLONOSCOPY 07/07/2016 from Last 3 Months or Most Recently Relevant to Health Maintenance Results * (ABNORMAL) COMPREHENSIVE METABOLIC PANEL (02/09/2025 12:01 PM CDT) [facility] Glucose 94 70 - 125 mg/dL 02/09/2025 12:29 PM CDT [facility] Sodium 137 136 - 145 mmol/L 02/09/2025 12:29 PM CDT [facility] Potassium 4.7 3.4 - 5.1 mmol/L 02/09/2025 12:29 PM T [facility] Chloride 108(H) 98 - 107 mmol/L 02/09/2025 12:29 PM CDT [facility] CO2 23 22 - 29 mmol/L 02/09/2025 12:29 PM CDT [facility] Calcium 9.91 8.4 - 10.2 mg/dL 02/09/2025 12:29 PM T [facility] Anion Gap 6 6 - 16 mmol/L 02/09/2025 12:29 PM T [facility] BUN 19.9 9.8 - 20.1 mg/dL 02/09/2025 12:29 PM T [facility] Creatinine 0.94 0.57 - 1.11 mg/dL 02/09/2025 12:29 PM T [facility] Alkaline Phosphatase 90 40 - 150 U/L 02/09/2025 12:29 PM CDT [facility] ALT 26 7 - 30 U/L 02/09/2025 12:29 PM CDT [facility] AST 21 5 - 34 U/L 02/09/2025 12:29 PM T [facility] Protein Total 7.4 6.4 - 8.3 gm/dL 02/09/2025 12:29 PM T [facility] Albumin 3.9 3.1 - 4.5 gm/dL 02/09/2025 12:29 PM T [facility] Globulin Total 3.5 2.6 - 4.0 gm/dL 02/09/2025 12:29 PM T [facility] Albumin/Globulin Ratio 1.1 0.9 - 1.6 02/09/2025 12:29 PM T [facility] Bilirubin Total 0.4 0.2 - 1.2 mg/dL 02/09/2025 12:29 PM T [facility] eGFR 68(L) >90 mL/min/1.7 3m2 02/09/2025 12:29 PM T [facility] Comment:The GFR result was c alculated using the updated CKD-EPI Creatinine Equation (2020). Blood BLOOD SPECIMEN / Unknown Lab Venipuncture / Unknown 02/09/2025 12:01 PM CDT 02/09/2025 12:06 PM T us Araceli Araujo DO LAB - CHEMISTRY ORDERABLES Fi nal Result Performing Organization Address [facility]/State/[facility] de Phone Number [facility] [address] * (ABNORMAL) LIPID PROFILE (07/25/2024 10:49 AM CDT) Cholesterol 234(H) <200 mg/dL 07/25/2024 11:23 AM CDT [facility] Triglycerides 135 <150 mg/dL 07/25/2024 11:23 AM CDT [facility] HDL Cholesterol 51 >40 mg/dL 11:23 AM CDT [facility] Chol HDL Ratio 4.6 1.0 - 6.0 07/25/2024 11:23 AM CDT [facility] LDL Calculated 156(H) 65 - 130 mg/dL 07/25/2024 11:23 AM CDT [facility] VLDL Calculated 27 <=30 mg/dL 11:23 AM CDT [facility] Blood BLOOD SPECIMEN / Unknown Lab Venipuncture / Unknown 07/25/2024 10:49 AM CDT 07/25/2024 10:57 AM CDT Narrative [facility] - 07/25/2024 11:23 AM CDT Lipid Profile Comment: CHOLESTEROL LEVEL..................CLINICAL INTERPRETATION LESS THAN 200 MG/DL..............................DESIRABLE 200-239 MG/DL..............................BORDERLINE HIGH GREATER THAN 240 MG/DL................................HIGH LDL-CHOLESTEROL LEVEL..............CLINICAL INTERPRETATION LESS THAN 100 MG/DL................................OPTIMAL 100-129 MG/DL.................................NEAR OPTIMAL GREATER THAN 160 MG/DL...........................HIGH RISK HDL RISK LEVEL GREATER THEN 60 MG/DL............................DECREASED 40-60 MG/DL........................................AVERAGE LESS THAN 40 MG/DL...............................INCREASED TRIGLYCERIDE LEVEL..................CLINICAL INTERPRETATION LESS THAN 150 MG/DL...............................DESIRABLE 150-199 MG/DL...............................BORDERLINE HIGH 200-499 MG/DL..........................................HIGH GREATER THAN 500..................................VERY HIGH THE NATIONAL CHOLESTEROL EDUCATION PROGRAM HAS SET THE ABOVE GUIDELINES (REFERANCE VALUES) FOR CHOLESTEROL AND HDL. RISK ASSOCIATED WITH CHOLESTEROL/HDL RATIOS RISK....................MALE RATIO.............FEMALE RATIO 1/2 AVERAGE.................<3.4.......................<3.3 LOW RISK.................... 4.0 ...................... 3.8 AVERAGE..................... 5.0 ...................... 4.5 2X AVERAGE.................. 9.5 ...................... 7.0 3X AVERAGE...................>23........................>11 us Lesia Sabillon MD LAB - CHEMISTRY ORDERABL ES Final Result [facility] [address] * COLONOSCOPY (07/07/2016) 07/07/2016 Narrative 07/07/2016 Ordered by an unspecified provider. us Scanned Document SCANNING ONLY Final Result from Last 3 Months or Most Recently Relevant to Health Maintenance Insurance Care Teams Belt Brander Relationship Specialty Start Date End Date Malissa Mercedes PA-C [address] [place] [phone] PCP - General 07/27/23 Abisai Castillo MD [address] [place] [address] [address] [place] [phone] Cardiovascular Disease 10/03/24
--- OUTSIDE RECORDS SUMMARY | 2025-04-16 15:24 | XMS_ITS | Clinical Summary ---
Author Organization [facility] Address [address] [facility], [address] [phone] Phone Care Team Providers Care Precision Grinder External Name Role Phone Provider, Unknown Primary Care Provider Unavaila ble Allergies Active Allergy Reactions Criticality Noted Date Comments Meclizine Other (see Comments) Medium Extreme fatigue/sleep Morphine Itching 04/30/2018 Penicillins Hives,Other (see Comments) 02/04/2018 Sulfa Antibiotics Other (see Comments) High 02/05/20 18 Henoch-Schonlein purpura Medications acyclovir (ZOVIRAX) 800 MG Tablet TK 1 T PO QD 5 8 Active dilTIAZem 120 MG Tablet TK 1 T PO BID 5 8 Active Doxycycline Monohydrate 100 MG Capsule TK ONE C PO BID 0 8 Active Probiotic Product (PROBIOTIC & ACIDOPHILUS EX ST) CapsuleIndicatio ns:Chronic sinusitis, unspecified location Take 1 daily by mouth while on antibiotics and for at least 5 days after completing the antibiotic course. 30 Cap 1 9 Active Active Problems Problem Noted Date Diagnosed Date Malocclusion of teeth 05/22/2018 Vertigo 05/22/2018 TMJ (temporomandibular joint syndrome) 8 Family History Medical History Relation Name Comments Leukemia/Lymphoma Father Diabetes Mother Hypertension Mother Relation Name Status Comments Father Alive Mother Alive Social History Tobacco Use Types Packs/Day Years Used Date Smoking Tobacco: Former Cigarettes 1 10 Smokeless Tobacco: Never Alcohol Use Standard Drinks/Week Comments Yes 0 (1 standard drink = 0.6 oz pur e alcohol) social Comments Unknown Sex and Gender Information Value Date Recorded Sex Assigned at Not on file Legal Sex Female 8:54 AM CDT Gender Identity Not on file Sexual Orientation Not on file 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 on file Not on f ile Not on file Last Filed Vital Signs Vital Sign Reading Time Taken Comments Blood Pressure 124/80 11/22/2018 11:24 AM COURTESY DRIVER Pulse 67 11/22/2018 11:24 AM COURTESY DRIVER Temperature 36.3 C (97.3 F) 11/22/2018 11:24 AM COURTESY DRIVER Respiratory Rate 16 11/22/2018 11:24 AM COURTESY DRIVER Oxygen Saturation 94% 11/22/2018 11:24 AM COURTESY DRIVER Inhaled Oxygen Concentration - - Weight 85.3 kg (188 lb) 11/22/2018 11:24 AM COURTESY DRIVER Height 172.7 cm (5' 8) 11/22/2018 11:24 AM COURTESY DRIVER Body Mass Index 28.59 11/22/2018 11:24 AM COURTESY DRIVER Plan of Treatment Health Maintenance Due Date Last Done Comments Hepatitis C Virus (HCV) Screening 1961 TdaP Immunization 1961 Pap Smear 1982 Cervical Cancer Screening (CCS) 1991 HPV/Cotest 1991 Cologuard 2006 Colonoscopy 2006 Colorectal Cancer Screening 2006 Immunochemical Fecal Occult Blood 2006 Pneumococcal Immunization (5 0+ years) (1 of 1 - PCV) 2011 Zoster Immunization (1 of 2) 2011 SARS-COV-2 Immunization (3 - season) 2024 07/23/2021, 12/03/2020 Influenza Immunization (#1) 2025 Respiratory Syncytial Virus (RSV) Immunization (Adult) (1 - 1-dose 75+ series) 2036 Hepatitis B Immunization Aged Out No longer eligible based on patient's age to complete this topic Human Papillomavirus (HPV) Immunization Aged Out No longer eligible b ased on patient's age to complete this topic Meningococcal Immunization (ACWY) Aged Out No longer eligible b ased on patient's age to complete this topic Rotavirus Immunization Aged Out No lo nger eligible based on patient's age to complete this topic Insurance MEDICAID [employer] Care Teams Precision Grinder External Relationship Specialty Start Date End Date Provider, Unknown UNKNOWN PCP - General 05/22/18
--- OUTSIDE RECORDS SUMMARY | 2025-04-16 15:24 | XMS_ITS | Referral Summary ---
Author Organization [facility] Address [address] [place] [phone] Care Team Providers Care Application Programmer Analyst Name Role Phone Unknown, Notinfile Primary Care [...] PRN Assessment & Plan (09/12/2021 6:01 PM CHANNELER INSOLE): -mild ABMD OU, discussed conservative treatment with pt. Pt desires cornea evaluation to discuss possible procedures to address irregular astigmatism. I reviewed with her the use of RGP after cataract surgery and to continue surface lubrication. Accommodative dysfunction 07/06/2020 Assessment & Plan (08/03/2020 10:10 AM CHANNELER INSOLE): Prefers over-minused Rx - can wear as [...] 04/05/2020 Assessment & Plan (08/16/2023 12:39 PM CHANNELER INSOLE): Patient deferred DFE today, educated on importance Tr PCO OU RTC for annual exam Assessment & Plan (12/07/2021 11:09 AM CHANNELER INSOLE): As mentioned previously, likely multi-facorial decrease in [...] above Assessment & Plan (11/03/2020 2:10 PM CHANNELER INSOLE): Update MRx - prefers small change for [...] 01/23/2020 Assessment & Plan (08/16/2023 12:38 PM CHANNELER INSOLE): Patient states subjectively much improved since plug placement inferior Mild ABMD OU Continue artificial tears PRN RTC PRN Assessment & Plan (08/01/2023 12:40 PM CDT): Replaced punctal plug OS today, patient does think this helps with dryness Continue artificial tears PRN PRN with issues Assessment & Plan (03/21/2022 10:57 AM CDT): Ct systane prn Assessment & Plan (09/12/2021 6:00 PM CHANNELER INSOLE): She is status post (s/p) punctal plugs [...] 01/23/2020 Assessment & Plan (10/07/2020 1:34 PM CHANNELER INSOLE): Schedule scleral lens fitting at [facility]. Assessment & Plan (05/10/2020 9:47 AM CDT): [...] 04/12/2022 Assessment & Plan (12/07/2021 11:11 AM CHANNELER INSOLE): Assessment and Plan 1. Visually Significant Cataract [...] topography Assessment & Plan (09/12/2021 5:57 PM CHANNELER INSOLE): Assessment and Plan 1. 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 Lens Left: Eye [employer] [id number] 09/30/2024 [id number] / / [employer] Lens Iol Posterior Biconvex Optic Single Piece Envista 6.0x12.5 +19.5d Hydrophobic Acrylic [id number] - [id number] Implanted:Qty: 1 on 03/29/2022 by Rolan Love MD at [facility] Right: Lens [employer] [id number] / / Insurance [facility] [address] [place] [address] [facility] Care Teams Application Programmer Analyst Relationship Specialty Start Date End Date Unknown, Notinfile PCP - General 03/17/22
--- OUTSIDE RECORDS SUMMARY | 2025-04-16 15:24 | XMS_ITS | Encounter Summary ---
Author Organization [facility] Health Address [address] [place] [address] Care Team Providers Care Sheet Mill Supervisor Name Role Phone Malissa Mercedes PA-C Primary Care Provider Abisai Castillo MD Unavailable Reason for Visit * Reason Onset Date Comments MEDICATION REFILL 11/07/2024 Encounter Details Date Type Department Care Team (Late st Contact Info) Description 11/07/2024 Refill [facility] [address] [place] [address] Aura Castillo, FLOOR LAYER TILE-INSPECTOR PRECISION [address] [place] [address] MEDICATION REFILL Social History Tobacco Use Types Packs/Day Years Used Date Smoking Tobacco: Some Days Cigarettes Last attempted to quit: 03/2024 Smokeless Tobacco: Never Comments:quit - 1 cig once i n a blue [place] Alcohol Use Standard Drinks/Week [...] Answer Date Recorded Patient Health Questionnaire-2 Score 0 09/18/2024 Comments No Sex and Gender Information Value Date Recorded Sex Assigned at Not on file Legal Sex Female 8:06 AM CDT Gender Identity Not on file Sexual Orientation Not on file documented as of this encounter Functional Status * Question Answer Date of Assessment Author Q1: How often do you have a drink containing alcohol? Never 11/10/2024 7:19 AM Marisa Valdivia RN Q2: How many drinks containing alcohol do you have on a typical day when you are drinking? Patient does not drink 11/10/2024 7:19 AM Marisa Valdivia RN Q3: How often do you have six or more drinks on one occasion? Never 11/10/2024 7:19 AM Marisa Valdivia RN * Audit-C Score Answer Date of Assessment Author 0 11/10/2024 7:19 AM Marisa Valdivia RN * Is person deaf or have serious hearing difficulty? Answer Date of Assessment Author No 09/15/2024 1:34 PM Martinez Saldivar RN * Is person blind or have serious difficulty seeing? Answer Date of Assessment Author No 09/15/2024 1:34 PM Martinez Saldivar RN * Does person have serious difficulty walking/climbing stairs? Answer Date of Assessment Author No 09/15/2024 1:34 PM Martinez Saldivar RN * Does person have difficulty dressing/bathing? Answer Date of Assessment Author No 09/15/2024 1:34 PM Martinez Saldivar RN * Does person have difficulty doing errands alone? Answer Date of Assessment Author No 09/15/2024 1:34 PM Martinez Saldivar RN documented as of this encounter Mental Status * Does person have difficulty concentrating/remembering/making decisions? Answer Entry Date Author No 09/15/2024 1:34 PM Martinez Saldivar RN documented in this encounter Miscellaneous Notes * Telephone Encounter - Kimmie Irene LPN - 11/07/2024 3:32 PM CST Spoke to [facility] pharmacy regarding the [facility]. Pharmacy stated note says insurance does not cover this medication and patient is aware. Spoke to patient and explained above note. Explained it is recommended she purchase and start. Patient voiced understanding and agreeable to start medication. Y EXTRACTOR documented in this encounter Plan of Treatment Upcoming Encounters Date Type Department Care Team (Late st Contact Info) Description 05/05/2025 1:30 PM CDT Office Visit [facility] [address] [facility] [address] [place] [id number] Kenya Cruz, FLOOR LAYER TILE-INSPECTOR [employer]CISION [address] [facility] [address] [place], [place] [id number] 05/05/2025 2:30 PM CDT Office Visit [facility] [address] [place] [address] Aura Castillo, FLOOR LAYER TILE-INSPECTOR [employer] [address] [place] [address] documented as of this encounter Visit Diagnoses Diagnosis Bariatric surgery status documented in this encounter Care Teams Sheet Mill Supervisor Relationship Specialty Start Date End Date Malissa Mercedes PA-C [address] [place] [address] PCP - General 07/27/23 Abisai Castillo MD [address] [facility] [address] [place] [id number] Cardiovascular Disease 10/03/24 documented as of this encounter
--- OUTSIDE RECORDS SUMMARY | 2025-04-16 15:25 | XMS_ITS | Data Portability ---
Author Organization [facility] Address [address] [place] [address] Care Team Providers Care Ssis Ssrs Developer Name Role Phone ELDON JAMES Primary Care Provider Assessment Encounter Date Assessment Date Assessment LastModified by Organization Details LastModified Time 02/22/2024 02/22/2024 Annual gynecological exam performed. Patient will come back in a year unless there are new symptoms. [email or web address] Not available 02/22/2024 10:00:28 01/26/2025 01/26/2025 Annual gynecological exam performed. Patient will come back in a year unless there are new symptoms. [email or web address] Not available 01/26/2025 10:15:34 02/24/2025 02/24/2025 Annual gynecological exam performed. Patient will come back in a year unless there are new symptoms. [email or web address] Not available 02/24/2025 10:13:45 Plan of Treatment Reminders Order Date Submit Date Provider Last Modified By Organization Details Last Modified Time Details Appointments None recorded. Lab pap, IG + HR HPV - HPV regardless but if HPV is positive need subtyping 16,18/[address] [facility] (Lab), [address], [place], [address], 16:46:27 testosteron e free/testos terone total, ratio, serum [address] [facility] (Lab), [address], [place], [address], 5 08:39:30 testosteron e free/testos terone total, ratio, serum 2023 [facility] (Lab), [address], [place], [address], 5 05:00:45 CMP, serum or plasma [address] [facility] (Lab), [address], [place], [address], 5 05:00:45 Referral None recorded. Procedures None recorded. Surgeries None recorded. Imaging MAMMO, screening, digital, bilateral [address] [facility], [address], [address], [place], [address], 5 18:32:06 DEXA, axial skeleton + vertebral fracture assessment [address] [facility], [address], [address], [place], [address], 5 12:17:49 Medication Orders progesteron e micronized 200 mg capsule 2024 025 [id number], [address], [place], [place], [id number], 5 11:56:44 progesteron e micronized 100 mg capsule 2023 024 [id number], [address], [place], [place], [id number], 5 11:56:45 Patient TargetsNo targets recorded. Patient InstructionsNo instructions recorded. Reason for Referral None Reported. Results Created Date Observation Date Name Description Value Unit Range Abnormal Flag Note LastModifiedBy Organization Detail LastModifiedTime 02/22/2002/22/2024 IMAGE GUIDE D PAP AND HPV REGAR DLESS image guided Pap, HPV regardless of Pap result SEE RESULT S BELOW abnormal CASE REPOR T: Cytol ogy Gynec ologi ariana Repor t Case: [id number] Autho lashell ayon Provi kalpana: Aidan Shannon Colle cted: 02/21 1238 PROCESSING MANAGER Order ing Locat ion: [place] Patho loghugo Recei sheila: 02/24 1143 First Scree n: Erin Muro, CT Rescr een: Nia Hart , CT Speci men: Katarina meraz Pap - Image d, Cervi x STATE MENT OF ADEQU ACY: Satis facto ry for evalu ation Trans forma tion zone compo nent canno t be defin itive ly ident ified due to the prese nce of atrop hy or other hormo nal hassan es ----- ----- ----- ----- ----- ----- ----- ----- ----- ----- ----- ----- ----- ----- ----- ----- ----- ---- FINAL DIAGN OSIS: Negat anand for Intra epith elial Juan ortez or Libby sheriff ([facility]) . Atrop hic cell kvng hernandez. Elect kathi johnson d by Nia Hart , CT on 2023 at 1:32 PM ----- ----- ----- ----- ----- ----- ----- ----- ----- ----- ----- ----- ----- ----- ----- ----- ----- ---- HPV RESUL TS: HPV mRNA E6/E7 : Posit anand - HPV mRNA Detec cristina HPV GENOT YPE 16 (MIGUEL) : Not Detec cristina HPV GENOT YPE 18/45 (MIGUEL) : Not Detec cristina NOTE: This high risk HPV mRNA assay detec ts fourt een high- risk HPV types (16, 18, 31, 33, 35, 39, 45, 51, 52, 56, 58, 59, 66, 68) witho ut diffe renti ation . This assay can diffe renti ate HPV 16 from HPV 18/45 , but does not diffe renti ate betwe en HPV 18 and HPV 45. A negat anand HPV 16, 18/45 genot ype assay resul t does not exclu de the possi bilit y of cytol ogic abnor malit ies or of futur e or under lying KAMALJIT 1, KAMALJIT 3 or cance r. COMME NT: This speci men was revie wed by a Cytot echno logis t and/o r Patho logis t (as indic ated in this repor t) after evalu ation using the Thinp rep Imagi ng Syste m. CLINI ARIANA INFOR MATIO N: Menst rual Statu s: LMP (if appli cable ): Clini ariana Histo ry/Pr eviou s Pap: Type of Neopl damián (if appli cable ): Signi fican t Clini ariana Findi ngs: Other Histo ry: Hormo alexsandra (if appli cable ): PAP EDUCA JC L NOTE: The Pap Test is a scree mariya test with an inher ent false negat anand rate. Liqui d-bas ed sampl ing may decre ase, but will not elimi mateo, false negat anand resul ts. A negat anand resul t does not precl ude the prese nce and/o r devel opmen t of disea se, since the prese nce of abnor mal cells in the sampl e depen ds on the locat ion of the lesio n and sampl ing techn ique. Garcia nued regul ar scree mariya is the best metho d of cance r preve ntion . If repor cristina cytol ogic findi ng do not corre late with physi ariana and/o r histo rical findi ngs, furth er inves tigat ion is recom jonelle d, as clini linette ji nted. Not Available [facility] (Lab) [address], [place], [address], 02/28/2024 14:36:30 02/25/20 25 02/24/2025 IMAGE GUIDE D PAP AND HPV REGAR DLESS image guided Pap, HPV regardless of Pap result SEE RESULT S BELOW abnormal CASE REPOR T: Cytol ogy Gynec ologi ariana Repor t Case: [id number] Autho lashell ayon Provi kalpana: Malini Han, CHRISTOPHER Pisano cted: 02/24 1326 Order ing Locat ion: [place] Patho logy Recei sheila: 02/25 0722 First Scree n: Blaine cordova, Joyce, CT Rescr een: Nia Hart , CT Patho logis t: Sadia Velez MD Speci men: Katarina meraz Pap - Image d, Cervi x STATE MENT OF ADEQU ACY: Satis facto ry for evalu ation Trans forma tion zone compo nent canno t be defin itive ly ident ified due to the prese nce of atrop hy or other hormo nal hassan es ----- ----- ----- ----- ----- ----- ----- ----- ----- ----- ----- ----- ----- ----- ----- ----- ----- ---- FINAL DIAGN OSIS: Negat anand for Intra epith elial Lesio n or Libby sheriff ([facility]) . Atrop hic cell kvng hernandez. Leobardo fraser by Sadia Velez MD on 2024 at 1543 CDT ----- ----- ----- ----- ----- ----- ----- ----- ----- ----- ----- ----- ----- ----- ----- ----- ----- ---- HPV RESUL TS: HPV mRNA E6/E7 : Posit anand - HPV mRNA Detec cristina HPV GENOT YPE 16 (MIGUEL) : Not Detec cristina HPV GENOT YPE 18/45 (MIGUEL) : Not Detec cristina NOTE: This high risk HPV mRNA assay detec ts fourt een high- risk HPV types (16, 18, 31, 33, 35, 39, 45, 51, 52, 56, 58, 59, 66, 68) witho ut diffe renti ation . This assay can diffe renti ate HPV 16 from HPV 18/45 , but does not diffe renti ate betwe en HPV 18 and HPV 45. A negat anand HPV 16, 18/45 genot ype assay resul t does not exclu de the possi bilit y of cytol ogic abnor malit ies or of futur e or under lying KAMALJIT 1, KAMALJIT 3 or cance r. COMME NT: This speci men was revie wed by a Cytot echno logis t and/o r Patho logis t (as indic ated in this repor t) after evalu ation using the Thinp rep Imagi ng Syste m. CLINI ARIANA INFOR MATIO N: Menst rual Statu s: LMP (if appli cable ): Clini ariana Histo ry/Pr eviou s Pap: Type of Neopl damián (if appli cable ): Signi fican t Clini ariana Findi ngs: Other Histo ry: Hormo alexsandra (if appli cable ): PAP EDUCA JC L NOTE: The Pap Test is a scree mariya test with an inher ent false negat anand rate. Liqui d-bas ed sampl ing may decre ase, but will not elimi mateo, false negat anand resul ts. A negat anand resul t does not precl ude the prese nce and/o r devel opmen t of disea se, since the prese nce of abnor mal cells in the sampl e depen ds on the locat ion of the lesio n and sampl ing techn ique. Garcia nued regul ar scree mariya is the best metho d of cance r preve ntion . If repor cristina cytol ogic findi ng do not corre late with physi ariana and/o r histo rical findi ngs, furth er inves tigat ion is recom jonelle d, as clini linette ji nted. Not Available [facility] (Lab) [address], [place], [address], 02/27/2025 16:46:27 02/25/2002/24/2025 TESTO STERO NE, FREE( DIALY SIS) AND TOTAL (LC/M S/MS) testosterone , total 295 NG/dL 2-45 high For addit ional infor alysha logan e refer to http: //[facility] argelia ortez.que stdia gnost ics.c om/fa q/ Total Testo stero neLCM SMSFA Q165 (This link is being provi ded for infor matio nal/ educa jc l purpo ses only. ) This test was devel oped and its ghada tical perfo rmanc e jaylin cteri stics have been deter mined by [employer] [employer] [place], [place]. It has not been clear ed or appro sheila by the U.S. Food and Drug Admin istra tion. This assay has been valid ated pursu ant to the CLIA regul ation s and is used for clini ariana purpo ses. Not Available [facility] (Lab) [address], [place], [address], 03/02/2025 08:39:30 02/25/2002/24/2025 TESTO STERO NE, FREE( DIALY SIS) AND TOTAL (LC/M S/MS) testosterone , free 31.6 pg/mL 0.1-6. 4 high This test was devel oped and its ghada tical perfo rmanc e jaylin cteri stics have been deter mined by [facility] [employer] [place], [place]. It has not been clear ed or appro sheila by the U.S. Food and Drug Admin istra tion. This assay has been valid ated pursu ant to the CLIA regul ation s and is used for clini ariana purpo ses. Perfo rming Organ izati on [facility]: Site ID: AMD Name: [facility] [employer] yarelis Addre ss: [id number] [place], [place] Direc tor: Jason Storm MD PhD Not Available [facility] (Lab) [address], [place], [address], 03/02/2025 08:39:30 03/26/20 25 03/26/2025 SURGI ARIANA PATHO LOGY surgical pathology SEE RESULT S BELOW CASE REPOR T: Surgi ariana Patho logy Repor t Case: [id number] Autho lashell ayon Provi kalpana: Jeancarlos Woo MD Colle cted: 03/26 1302 Order ing Locat ion: NM Patho logy Recei sheila: 03/27 0124 Patho logis t: Bulmaro Hassan MD Speci men: Endoc ervix , ECC ----- ----- ----- ----- ----- ----- ----- ----- ----- ----- ----- ----- ----- ----- ----- ----- ----- ---- FINAL DIAGN OSIS: Endoc ervix , curet tage: - Low-g rade squam ous intra epith elial lesio n (KAMALJIT 1) invol ving fragm ents of ectoc ervic al squam ous epith elium . - Scant endoc ervic al gland ular epith elium witho ut diagn ostic abnor ilda green Elect kathi johnson d by Bulmaro Hassan MD on 2024 at 1302 CDT ----- ----- ----- ----- ----- ----- ----- ----- ----- ----- ----- ----- ----- ----- ----- ----- ----- ---- CLINI ARIANA INFOR MATIO N: High risk cervi ariana HPV MICRO SCOPI C DESCR IPTIO N: A micro scopi c exami natio n was perfo rmed. GROSS DESCR IPTIO N: A. Endoc ervix . The speci men is recei sheila in forma annie on a biops y brush , label ed with the patie nt's name, magdalene vega cs and ECC . It consi sts of a 1.5 x 1.0 x 0.1 [address] gate of mucus and minut e wood tissu e. The speci men is submi tted entir brad in one casse tte. Gross ed by Emperatriz smith Not Available [facility] (Lab) [address], [place], [address], 03/27/2025 14:05:51 03/26/2003/26/2025 TESTO STERO NE, FREE( DIALY SIS) AND TOTAL (LC/M S/MS) testosterone , total 125 NG/dL 2-45 high For addit ional infor alysha logan e refer to http: //[facility] argelia ortez.que stdia gnost ics.c om/fa q/ Total Testo stero neLCM SMSFA Q165 (This link is being provi ded for infor melany lee/ educa jc l purpo ses only. ) This test was devel oped and its ghada tical perfo rmanc e jaylin cteri stics have been deter mined by [facility] [employer] [place] [place]. It has not been clear ed or appro sheila by the U.S. Food and Drug Admin istra tion. This assay has been valid ated pursu ant to the CLIA regul ation s and is used for clini ariana purpo ses. Not Available [facility] (Lab) [address], [place], [address], 04/01/2025 17:30:29 03/26/2003/26/2025 TESTO STERO NE, FREE( DIALY SIS) AND TOTAL (LC/M S/MS) testosterone , free 10.4 pg/mL 0.1-6. 4 high This test was devel oped and its ghada tical perfo rmanc e jaylin cteri stics have been deter mined by [facility] [employer] [place], [place]. It has not been clear ed or appro sheila by the U.S. Food and Drug Admin istra tion. This assay has been valid ated pursu ant to the CLIA regul ation s and is used for clini ariana purpo ses. Perfo rming Organ izati on Infor matio n: Site ID: AMD Name: [facility] [employer] tute Addre ss: [id number] [email or web address] [place], [place] Direc tor: Jason Storm MD PhD Not Available [facility] (Lab) [address], [place], [address], 04/01/2025 17:30:29 Result Notes None recorded. Problems Name Problem SNOMED Code Status Onset Date Resolution Date Notes Provider Name and Address Organization Details Recorded Time Cytologi c finding [id number] Completed 201401/03/2021 Cervical Pap smear w/ LGSIL;Re corded Elsewher e: No Locat ion: [facility] S ource: EHR Cement Gun Operator danielle: N Practi ce ID: 0001 Darryl lable Time: 02:30:00 PM Marlo Woo MD [address], [place], [address], [facility] 17:50:[address] Concept Completed 201501/03/2021 Encntr for general adult medical exam w/o abnormal findings ;Recorde d Elsewher e: No Locat ion: [facility] S ource: EHR Cement Gun Operator danielle: N Practi ce ID: 0001 Darryl lable Time: 04:45:00 PM Marlo Woo MD [address], [place], [address], [facility] 17:51:06 Hyperten sive disorder [id number] Completed 201501/03/2022 Hyperten dede;Rec orded Elsewher e: No Locat ion: [facility] S ource: EHR Cement Gun Operator danielle: N Practi ce ID: 0001 Darryl lable Time: 04:45:00 PM Anita Manny beasley, [facility] 2 18:07:52 Generali zed enlarged lymph nodes [id number] Completed 201501/03/2021 Lymphade nopathy; Recorded Elsewher e: No Locat ion: [facility] S ource: EHR Cement Gun Operator danielle: N Practi ce ID: 0001 Darryl lable Time: 04:45:00 PM Marlo Woo MD [address], [place], [address], [facility] 1 17:50:[address] Concept Completed 201501/03/2021 Encntr for technical services specialist exam (general ) (routine ) w/o abn findings ;Practic e ID: 0001 Marlo Woo MD [address], [place], [address], [facility] 1 17:51:03 High grade squamous intraepi thelial lesion on cervical Papanico laou smear [id number] Completed 201501/03/2022 HGSIL on pap smear of cervix;R ecorded Elsewher e: No Locat ion: [facility] S ource: EHR Cement Gun Operator danielle: N Practi ce ID: 0001 Darryl lable Time: 03:45:00 PM [facility] 18:07:52 Neoplasm of uterine cervix Completed 201601/03/2021 Mild cervical dysplasi a;Practi ce ID: 0001 Marlo Woo MD [address], [place], [address], [facility] 1 17:51:14 Deep pain on intercou rse [id number] Completed 201601/03/2022 Deep dyspareu kiara;Prac rocio ID: 0001 Anita beasley, [facility] 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 2 18:07:52 Disorder of perineum Completed 201601/03/2021 Condylom a acuminat um;Recor ded Elsewher e: No Locat ion: [facility] S ource: EHR Cement Gun Operator danielle: N Practi ce ID: 0001 Darryl lable Time: 04:15:00 PM Marlo Woo MD [address], [place], [address], [facility] 1 17:50:53 Condylom a acuminat um of the anogenit al region [id number] Completed 201601/03/2022 Condylom a acuminat um;Recor ded Elsewher e: No Locat ion: [facility] S ource: EHR Cement Gun Operator danielle: N Practi ce ID: 0001 Darryl lable Time: 04:15:00 PM Anita beasley, [facility] 2 18:07:52 Vaginola bial hernia Completed 201701/03/2021 Other specifie d noninfla mmatory disorder s of vagina;P ractice ID: 0001 Marlo Woo MD [address], [place], [address], [facility] 1 17:51:09 Screenin g for malignan t neoplasm of rectum Completed 201701/03/2021 Encounte r for screenin g for malignan t neoplasm of rectum;R ecorded Elsewher e: No Locat ion: [facility] S ource: EHR Cement Gun Operator danielle: N Practi ce ID: 0001 Darryl lable Time: 03:00:00 PM Marlo Woo MD [address], [place], [address], [facility] 17:51:20 Verruca vulgaris [id number] Completed 201701/03/2021 Viral wart, unspecif ied;Gigi rded Elsewher e: No Locat ion: [facility] S ource: EHR Cement Gun Operator danielle: N Practi ce ID: 0001 Darryl lable Time: 01:00:00 PM Marlo Woo MD [address], [place], [address], [facility] 17:51:00 Pregnanc y test negative [id number] Completed 201701/03/2021 Encounte r for pregnanc y test, result negative ;Recorde d Elsewher e: No Locat ion: [facility] S ource: EHR Cement Gun Operator danielle: N Practi ce ID: 0001 Darryl lable Time: 03:30:00 PM Marlo Woo MD [address], [place], [address], [facility] 17:51:17 Low grade squamous intraepi thelial lesion on cervical Papanico laou smear [id number] 9105 Completed 201701/03/2022 Low grade intrepit h lesion cyto smr crvx (LGSIL); Recorded Elsewher e: No Locat ion: [facility] S ource: EHR Cement Gun Operator danielle: N Practi ce ID: 0001 Darryl lable Time: 03:30:00 PM [facility] 18:07:52 Molluscu m contagio sum infectio n [id number] Completed 201801/03/2022 Molluscu m contagio sum;Gigi rded Elsewher e: No Locat ion: [facility] S ource: EHR Cement Gun Operator danielle: N Practi ce ID: 0001 Darryl lable Time: 08:30:00 AM Anita Bryant [facility], [facility] 2 18:07:52 Human papillom avirus deoxyrib onucleic acid detected , high risk on cervical specimen [id number] Completed 201901/03/2022 Cervical high risk HPV DNA test positive ;Recorde d Elsewher e: No Locat ion: [facility] S ource: EHR Cement Gun Operator danielle: N Practi ce ID: 0001 Darryl lable Time: 09:19:08 AM Anita beasley, [facility] 2 18:07:52 Atypical squamous cells of undeterm ined signific ance on cervical Papanico laou smear [id number] Completed 201901/03/2022 Atypical squamous cells of undeterm ined signific ance on cytologi c smear of cervix (ASC-US) ;Recorde d Elsewher e: No Locat ion: [facility] S ource: EHR Cement Gun Operator danielle: N Nilsti ce ID: 0001 Darryl lable Time: 03:30:00 PM Anita beasley, [facility] 2 18:07:52 Problem Notes None recorded. Procedures Surgical History Date Name Laterality Status Provider Name and Address Organization Details Recorded Time 03/26/20 25 Colposcopy completed Marlo Woo MD [address], [place], [address], [place] [facility] 03/28/2025 22:48:40 03/26/20 25 Colposcopy completed Amisha Pyle [facility] 03/26/2025 12:24:24 03/26/20 25 Colposcopy completed Amisha Pyle [facility] 03/26/2025 12:25:36 02/25/20 25 Date of Last Pap Smear completed Amisha Pyle [facility] 03/26/2025 12:24:54 03/20/20 23 Colposcopy completed Kathleen Bhat [facility] [address], [place], [address], [facility] 03/20/2023 14:40:37 02/11/20 23 Date of Last Mammogram completed Amisha Pyle [facility] 02/14/2023 09:45:12 10/01/19 22 extraction of cataract completed Anita Ramirez [facility] 02/22/2024 10:10:03 04/23/20 20 completed Melissa Eng [facility] 01/03/2021 17:43:57 04/01/20 20 Most Recent Bone Density completed Anita Bryant [facility] 01/03/2022 22:18:04 12/05/19 20 Colposcopy completed Marianne Skelton [facility] 02/11/2022 15:11:09 07/04/20 18 Colposcopy completed Marianne Skelton [facility] 02/11/2022 15:11:13 01/10/20 18 Colposcopy completed Marianne Skelton [facility] 02/11/2022 15:11:20 10/25/19 17 LEEP completed Marianne Skelton [facility] 02/11/2022 15:10:54 08/22/20 16 Colposcopy completed Marianne Skelton [facility] 02/11/2022 15:11:25 04/05/20 15 Colposcopy completed Marianne Skelton [facility] 02/11/2022 15:11:32 10/01/19 13 procedure on neck completed Marianne Skelton [facility] 02/11/2022 15:10:24 10/01/19 07 procedure on neck completed Marianne Skelton [facility] 02/11/2022 15:10:34 10/01/19 05 laparoscopic adjustable gastric banding completed Melissa [facility] 07/14/2020 12:21:39 Xcapsl ctrc rmvl cplx wo ecp completed Kathleen Bhat, [facility] [address], [place], [address], [facility] 02/14/2023 09:57:32 Imaging Results None recorded. Procedure Notes None recorded. Medical Equipment None Reported. Allergies Allergen ID Allergen Name Allergen Category Reaction Reaction Severity Criticality Documentation Date Start Date Code Code System Note Provider Name and Address Organization Details Recorded Time 2400 Product containin g penicilli n (product) medicatio n Not available Not available Not available 07/14/2020 35[id number] 12:23:52 2401 Substance with sulfonami de structure and antibacte rial mechanism of action (substanc e) medicatio n Not available Not available Not available 07/14/2020 49473 8003 [facility] 0 12:24:01 Medications Name Sig Start Date Stop Date Status Note LastModified by Organization Details LastModified Time losartan 50 mg tablet TAKE 1 TABLET BY MOUTH EVERY DAY IN THE MORNING 02/21 completed Not Available Not Available Not Available cyclobenz aprine 10 mg tablet TAKE 1 TABLET BY MOUTH TWICE DAILY FOR 14 DAYS NEEDED 02/14 completed Not Available Not Available Not Available doxycycli ne hyclate 100 mg capsule TAKE 1 CAPSULE BY MOUTH TWICE DAILY FOR 10 DAYS 01/26 completed Not Available Not Available Not Available atorvasta tin 20 mg tablet TK 1 T PO QD HS 02/11 completed Not Available Not Available Not Available clindamyc in HCl 300 mg capsule TAKE 1 CAPSULE BY MOUTH EVERY 8 HOURS UNTIL GONE 01/25 completed Not Available Not Available Not Available azithromy kamaljit 250 mg tablet TAKE 2 TABLETS BY MOUTH FOR 1 DAY THEN TAKE 1 TABLET BY MOUTH DAILY FOR 4 DAYS 01/26 completed Not Available Not Available Not Available ofloxacin 0.3 % eye drops INSTILL 1 DROP IN LEFT EYE FOUR TIMES DAILY. START AFTER 02-08-22 SURGERY 02/14 completed Not Available Not Available Not Available hydrocodo ne 5 mg-acetam inophen 325 mg tablet TAKE 1 TABLET BY MOUTH EVERY 4 TO 6 HOURS 01/26 completed Not Available Not Available Not Available donepezil 10 mg tablet 02/14 completed Not Available Not Available Not Available ondansetr on HCl 4 mg tablet 02/11 completed Not Available Not Available Not Available alendrona te 70 mg tablet TAKE 1 TABLET BY MOUTH 1 TIME A WEEK 01/25 completed Not Available Not Available Not Available clindamyc in HCl 150 mg capsule 02/11 completed Not Available Not Available Not Available Flonase 50 mcg/actua tion nasal spray,[facility] inhale 1 spray by intranas al route every day in each nostril 08/22 completed Prescrib ed Elsewher e: Yes Loca tion: [facility] odify By: zenaida lópez DateTime : 03/26/20 15 02:30:00 PM Not Available Not Available Not Available diltiazem ER 360 mg capsule,2 4 hr,extend ed release TAKE ONE CAPSULE BY MOUTH EVERY DAY 02/11 completed Not Available Not Available Not Available diltiazem CD 360 mg capsule,e xtended release 24 hr TAKE 1 CAPSULE BY MOUTH EVERY DAY 01/25 completed Not Available Not Available Not Available phentermi ne 37.5 mg tablet TAKE 1 TABLET BY MOUTH EVERY DAY 02/11 completed Not Available Not Available Not Available acetamino phen 300 mg-codein e 30 mg tablet TAKE 1 TABLET BY MOUTH FOUR TIMES DAILY NEEDED FOR PAIN 02/21 completed Not Available Not Available Not Available acyclovir 400 mg tablet TAKE 1 TABLET BY MOUTH THREE TIMES DAILY FOR 10 DAYS DIRECTED 07/15 completed Not Available Not Available Not Available omeprazol e 40 mg capsule,d elayed release TAKE 1 CAPSULE BY MOUTH DAILY BEFORE BREAKFAS T 03/26 completed Not Available Not Available Not Available acetamino phen 500 mg tablet TAKE 2 TABLETS BY MOUTH EVERY 8 HOURS FOR BASAL PAIN. MAY TAKE ADDITION AL 1 TABLET TWICE DAILY IF NEEDED 01/26 completed Not Available Not Available Not Available cyclopent olate 1 % eye drops 07/14 completed Not Available Not Available Not Available prednisol one acetate 1 % eye drops,[facility] pension SHAKE LIQUID AND INSTILL 1 DROP IN RIGHT EYE FOUR TIMES DAILY 02/14 completed Not Available Not Available Not Available clindamyc in 1 % topical gel APPLY THIN LAYER TOPICALL Y TO THE AFFECTED AREA EVERY DAY FOR 10 DAYS 02/14 completed Not Available Not Available Not Available doxycycli ne monohydra te 100 mg capsule TAKE 1 CAPSULE BY MOUTH EVERY 12 HOURS 02/11 completed Not Available Not Available Not Available cephalexi n 500 mg capsule TAKE 1 CAPSULE BY MOUTH EVERY 6 HOURS WITH MEALS FOR 7 DAYS 02/14 completed Not Available Not Available Not Available podofilox 0.5 % topical solution APPLY BY TOPICAL ROUTE 2 TIMES PER DAY FOR 3 DAYS THEN STOP FOR 4 DAYS. (REPEAT 7DAY CYCLE UNTIL NO VISIBLE WART TISSUE/M AX OF FOUR CYCLES) 07/14 completed Not Available Not Available Not Available Aldara 5 % topical cream packet apply by topical route 5 times every week to the affected area(s) 11/01 completed Prescrib maruizio López e: No Locat ion: [facility] M odify By: [email or web address] Godinez ncoradha DateTime : 09/12/20 04:15:00 PM Not Available Not Available Not Available losartan 25 mg tablet TAKE 1 TABLET BY MOUTH EVERY DAY IN THE MORNING FOR HIGH BLOOD PRESSURE . APPOINTM ENT NEEDED BEFORE ANYMORE REFILLS. active Not Available Not Available No t Available progester one micronize d 200 mg capsule TAKE 1 CAPSULE BY MOUTH EVERY DAY AT BEDTIME active Not Available Not Available No t Available docusate sodium 100 mg capsule TAKE ONE CAPSULE BY MOUTH TWICE DAILY 01/26 completed Not Available Not Available Not Available omeprazol e 20 mg capsule,d elayed release REID 1 CAPSULE BY MOUTH ONCE DAILY active Not Available Not Available No t Available acyclovir 200 mg capsule take 1 capsule by oral route every 4 hours 5 times per day 02/14 completed Prescrib ed Elsewher e: Yes Loca tion: Jaspal godinez [facility] odify By: sindhu reid DateTime : 11/24/19 04:15:00 PM Not Available Not Available Not Available hydrochlo rothiazid e 25 mg tablet take 1 tablet by oral route every day 08/22 completed Prescrib ed Elsewher e: Yes Loca tion: Jaspal godinez [facility] odify By: zenaida Godinez ncounter DateTime : 03/26/20 02:30:00 PM Not Available Not Available Not Available ergocalci ferol (vitamin D2) 1,250 mcg (50,000 unit) capsule TAKE 1 CAPSULE BY MOUTH EVERY WEEK active Not Available Not Available No t Available estradiol 0.01% (0.1 mg/gram) vaginal cream INSERT 1 GRAM PER VAGINA EVERY NIGHT AT BEDTIME FOR 1 MONTH THEN TWICE A WEEK BEFORE BEDTIME THEREAFT ER 02/21 completed Not Available Not Available Not Available scopolami ne 1 mg over 3 days [address]der[address] patch PL[address] 1 PATCH BEHIND EAR THE NIGHT BEFORE SURGERY 01/26 completed Not Available Not Available Not Available methylpre dnisolone 4 mg tablets in a dose pack FOLLOW PACKAGE DIRECTIO NS 02/21 completed Not Available Not Available Not Available diltiazem 30 mg tablet take 1 tablet by oral route 3 times every day 02/11 completed Prescrib ed Elsewher e: Yes Loca tion: Jaspal godinez [facility] odify By: edie reid DateTime : 03/26/20 15 02:30:00 PM Not Available Not Available Not Available Terazol 7 0.4 % vaginal cream insert 1 applicat orful by vaginal route every day for 7 days at bedtime 12/16 completed Prescrib ed Elsewher e: No Locat ion: Jaspal godinez [facility] odify By: jolly riverauntnikole DateTime : 12/11/19 18 01:16:21 PM Not Available Not Available Not Available ondansetr on 4 mg disintegr ating tablet DISSOLVE ONE TABLET BY MOUTH EVERY 4 HOURS NEEDED FOR NAUSEA/V OMITING 01/26 completed Not Available Not Available Not Available sertralin e 50 mg tablet TAKE 1 TABLET BY MOUTH EVERY DAY AT BEDTIME 02/11 completed Not Available Not Available Not Available clindamyc in HCl (bulk) powder 06/06 completed Prescrib ed Maribel e: Yes Loca tion: Kailaanjum gregorio [facility] M odify By: [email or web address] Encounte r DateTime : 06/10/20 18 04:00:00 PM Not Available Not Available Not Available progester one micronize d 100 mg capsule TAKE 1 CAPSULE BY MOUTH EVERY DAY AT BEDTIME 02/24 completed Not Available Not Available Not Available testoster one 1 % (50 mg/5 gram) transderm al gel packet TESTOSTE KEENA 5% CREAM (P#[id number] ) (TESTOST ERONE MICRONIZ ED YAM YAM CRYSTALS , GLYCERIN LIQUID, VERSABAS E ) - APPLY TWO CLICKS TO INNER THIGHS DAILYPre scribed Qty: 3 GramRefi lls: 5 03/05 completed Not Available Not Available Not Available oxycodone 5 mg tablet TAKE 1 TABLET BY MOUTH EVERY 6 HOURS NEEDED FOR PAIN 01/26 completed Not Available Not Available Not Available escitalop deborah 10 mg tablet TAKE 1 TABLET BY MOUTH EVERY DAY IN THE MORNING 02/14 completed Not Available Not Available Not Available nitrofura ntoin monohydra te/macroc rystals 100 mg capsule TK 1 C PO Q 12 H 02/11 completed Not Available Not Available Not Available magnesium active Not Available Not Macarena ilable Not Available potassium acetate 02/14 completed Not Available Not Available Not Available calcium active Not Available Not Avail able Not Available zinc 02/14 completed Not Available Not Available Not Available Fish Oil active Not Available Not Avai lable Not Available Vitamin D 02/14 completed Not Available Not Available Not Available hydrochlo rothiazid e 12.5 mg tablet TAKE 1 TABLET BY MOUTH EVERY DAY IN THE MORNING FOR HIGH BLOOD PRESSURE 07/15 completed Not Available Not Available Not Available Victoza 3-Ramon 0.6 mg/0.1 mL (18 mg/3 mL) subcutane ous pen injector 02/14 completed Not Available Not Available Not Available Zepbound 2.5 mg/0.5 mL subcutane ous pen injector Inject by subcutan eous route. active Not Available Not Available No t Available Vitals Date Recorded Body height Body mass index (BMI) Body weight Systolic And Diastolic Provider Name and Address Organization Details Last Updated DateTime 01/26/2025 165.1 cm 44.9 kg/m2 934218.94 g 124/89 mm[Hg] [facility] 01/26/2025 10:16:27 Date Recorded Body height Body mass index (BMI) Body weight Systolic And Diastolic Provider Name and Address Organization Details Last Updated DateTime 02/22/2024 165.1 cm 42.1 kg/m2 790280.87 g 132/86 mm[Hg] Anita Ramirez [facility] 02/22/2024 10:07:29 Date Recorded Body height Body mass index (BMI) Body weight Systolic And Diastolic Provider Name and Address Organization Details Last Updated DateTime 02/24/2025 165.1 cm 44.1 kg/m2 262010.26 g 133/94 mm[Hg] [facility] 02/24/2025 10:15:01 Date Recorded Body height Body mass index (BMI) Body weight Systolic And Diastolic Provider Name and Address Organization Details Last Updated DateTime 03/26/2025 165.1 cm 42.8 kg/m2 463556.24 g 137/89 mm[Hg] Amisha Pyle [facility] 03/26/2025 12:23:31 Date Recorded Body height Body mass index (BMI) Body weight Systolic And Diastolic Provider Name and Address Organization Details Last Updated DateTime 07/15/2024 165.1 cm 41.8 kg/m2 204122.68 g 109/80 mm[Hg] Stormy Umaña [facility] 07/15/2024 18:08:51 Social History Question Answer Notes LastModified by Organizat ion Details LastModified Time Tobacco Smoking Status [facility]2020 16:50:19 Are You Blind Or Do You Have Difficulty Seeing? No Information not available 02/11/2022 What Is Your Level Of Caffeine Consumption? Occasional [email or web address] Information not available 02/11/2022 In The 14 Days Before Symptom Onset, Have You Had Close Contact With A Laboratory-confir med COVID-19 While That Case Was Ill? No [email or web address] Information not available 02/11/2022 In The 14 Days Before Symptom Onset, Have You Had Close Contact With A Person Who Is Under Investigation For COVID-19 While That Person Was Ill? No [email or web address] Information not available 02/11/2022 Have You Been To An Area Known To Be High Risk For COVID-19? No [email or web address] Information not available 02/11/2022 Are You Deaf Or Do You Have Serious Difficulty Hearing? No [email or web address] Information not available 02/11/2022 What Type Of Diet Are You Following? REGULAR [email or web address] Information not available 02/11/2022 What Is The Highest Grade Or Level Of School You Have Completed Or The Highest Degree You Have Received? [id number] [email or web address] Information not available 01/26/2025 Have You Ever Been Counseled For Unhealthy Alcohol Use? No [email or web address] Information not available 02/11/2022 Do You Use Your Seat Belt Or Car Seat Routinely? Yes [email or web address] Information not available 02/11/2022 Do You Have Smoke And Carbon Monoxide Detectors In Your Home? Yes [email or web address] Information not available 02/11/2022 Do You Use Sunscreen Routinely? Yes [email or web address] Information not available 02/11/2022 Has Tobacco Cessation Counseling Been Provided? No [email or web address] Information not available 02/11/2022 Have You Used IV Drugs? No [email or web address] Information not available 01/26/2025 Do You Have Difficulty Walking Or Climbing Stairs? No [email or web address] Information not available 02/11/2022 Sex: Unknown Functional Status Question Answer Note LastModified by Organizat ion Details LastModified Time Do you use any illicit or recreational drugs? No [email or web address] Information not available 02/11/2022 Do you or have you ever used any other forms of tobacco or nicotine? No [email or web address] Information not available 02/11/2022 What is your level of alcohol consumption? Occasional Information not available 02/11/2022 Are you able to walk? YESWOREST [email or web address] Information not available 02/11/2022 Are you able to care for yourself? 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 No [email or web address] Information not available 02/11/2022 What is your exercise level? Occasional [email or web address] Information not available 02/11/2022 Mental Status Question Answer Note LastModified by Organization D etails LastModified Time Do you feel stressed (tense, restless, nervous, or anxious, or unable to sleep at night)? [id number] Information not available 01/26/2025 Family History Relationship Description Onset Age of this Age Resolved Age Notes LastModified by Organization Details LastModified Time Mother Diabetes mellitus [email or web address] Not available 2019 11:47:38 Mother Hypertensive disorder [email or web address] Not available 2019 11:48:30 Paternal Grandmother Hypertensive disorder [email or web address] Not available 2019 11:48:30 Maternal Grandmother Hypertensive disorder [email or web address] Not available 2019 11:48:30 Maternal Uncle Hypertensive disorder [email or web address] Not available 2019 11:48:30 Paternal Aunt Cyst of ovary [email or web address] Not available 2024 09:59:38 Maternal Aunt Cyst of ovary [email or web address] Not available 2024 09:59:38 Father Leukemia [email or web address] Not available 01/26/2025 09:59:38 Medical History Condition Response Allergies (Food, seasonal, environmental ) Y Other Y Breast Cancer N Drug/Latex Allergies/Reactions Y Blood Transfusion N Dermatologic Disorders N Lung Disease N Defects or Inherited Disease N Breast Problem N Gestational Diabetes N Hematologic disorders N Anesthesia Complications N History of STI Y Deep Vein Thrombosis N Polycystic ovary syndrome N Anxiety Disorder N Autoimmune disease N Arthritis N Infertility N Polyps N Acid Reflux (GERD) N History of abnormal pap Y Cancer N Stroke N Varicosities N Neurologic/Epilepsy N Endometriosis N High Cholesterol Y Headaches N Fibromyalgia N Kidney Disease N Heart Problems N Kidney or Bladder Problems N Thyroid Problems N GI Problems Y Eating Disorder N Anemia N Art (IVF or FET) N Psychiatric Illness N Ovarian Cancer N Diabetes N Pulmonary (TB, Asthma) N Hepatitis/Liver Disease N No Past Medical History N Eczema N Urinary Tract Infection N Abuse/Domestic Violence N Asthma N Trauma/Violence N Depression/ depression Y Heart Disease N Pre-Eclampsia Y Hypertension Y Osteoporosis Y Thrombophilias N Gynecological History Statement/Question Response Abnormal Pap Yes Date of Last Mammogram 02/10/2023 Date of LMP 10/02/2019 STIs/STDs Yes HPV Vaccine N Colposcopy 03/26/2025 04/23/2020 Current Control Method Menopause If Post Menopausal, Age at Menopause 56 Most Recent Bone Density 04/01/2020 Sexually Active? N Menses Monthly N Date of Last Pap Smear 02/24/2025 Sexual Problems? N LMP Unknown Obstetrics History GPAL:G 3 P 3 0 0 3 Type Value Full Term 3 Living 3 Total 3 Past Encounters Encounter ID Performer Location Encounter Start Date Encounter Closed Date Diagnosis/Indication Diagnosis SNOMED-CT Code Diagnosis ICD10 Code Diagnosis Note [id number] Marlo Woo MD [facility] [address] [address] 07/14/2020 16:36:56 07/14/2020 17:11:10 Abnormal cervical Papanicolaou smear [id number] R87.619 This patient is a 60-year-ol d female presents for repeat Pap. Pelvic exam Pap smear was performed. The vulva, vagina, cervix appeared grossly normal. The Pap was repeated. She tolerated it well. [id number] Marlo Woo MD [facility] [address] [address] 01/03/2021 16:58:42 01/03/2021 18:05:32 Gynecologic examination [id number] Z01.419 This patient is here for her annual exam. A thorough history was taken. A physical exam was performed. Age appropriat e routine health screening was ordered, performed, and discussed. Recommende d testing was ordered. She was asked to follow up in one year. She will be informed of any test results. Mammogram - [done] Colonoscop y - [ done ] Bone Density - [ na ] Cholestero l - [ done ] [facility] - [facility] [id number] [facility] [address] [address] 02/11/2022 12:42:44 02/13/2022 16:13:32 Gynecologic examination [id number] Z01.419 Take Calcium with Vitamin D 12-1500mg daily. Do monthly self breast exams. It is advised to get annual flu shot in the fall and she could obtain at [facility] or [facility] clinic. If you haven't received the Tdap vaccine in the last 10 years you should obtain one as well. Have mammogram yearly, bone density every 2-3 years and colonoscop y every 5-10 years depending on findings and history. Engage in daily exercise of low impact aerobic exercise 45-60 minutes 4-5 times weekly. Avoid tobacco and illicit drugs as well as using moderation with alcohol intake less than 1-2 8 oz beverages daily. This lifestyle behavior pattern will lead to less health conditions and longer life span. If BMI greater than 25 weight watchers or dietary consult advised. Questions have been answered. Patient appears to understand instructio ns, but if you have any further questions call or respond to this email Pap/hpv sentSTD Screen declinedGe netic Screen discussedC olon Screen UTDDexa Screen OrderedRou brigida Labs UTDMammo Ordered Screening mammography 24 299197 Z12.31 Postmenopausal state 764 43172 Z78.0 [id number] Marlo Woo MD [facility] [address] [address] 11/29/2021 09:45:51 11/29/2021 13:08:49 Atrophic vaginitis 78595820 N95.2 This patient is a 61 year old female who presents for vaginal dryness. Patient is use vaginal estrogen in the past with good effect. We talked about vaginal estrogen and the treatment routine. We talked about her blood pressure medication as well. Her blood pressure seems reasonably well controlled . She needs refills on her blood pressure medication . I asked her to get a blood pressure cuff and follow her blood pressures at home. She may need additional antihypert ensive therapy. She was given electronic prescripti on for vaginal estrogen. This is too expensive she was also given a paper script for the [facility]. We spent 15 minutes face-to-fa ce, more than 50% was counseling . Essential hypertension [id number] I10 [id number] Kathleen Bhat [facility] [address] [address] 02/14/2023 09:31:18 02/14/2023 10:11:48 Gynecologic examination [id number] Z01.419 Z11.51 Take Calcium with Vitamin D 12-1500mg daily. Do monthly self breast exams. It is advised to get annual flu shot in the fall and she could obtain at [facility] or [facility] care clinic. If you haven't received the Tdap vaccine in the last 10 years you should obtain one as well. Have mammogram yearly, bone density every 2-3 years and colonoscop y every 5-10 years depending on findings and history. Engage in daily exercise of low impact aerobic exercise 45-60 minutes 4-5 times weekly. Avoid tobacco and illicit drugs as well as using moderation with alcohol intake less than 1-2 8 oz beverages daily. This lifestyle behavior pattern will lead to less health conditions and longer life span. If BMI greater than 25 weight watchers or dietary consult advised. Questions have been answered. Patient appears to understand instructio ns, but if you have any further questions call or respond to this email Pap/hpv sentSTD Screen sentGeneti c Screen discussedC olon Screen UTD PCPDexa Screen orderedRou brigida Labs PCPMammo UTD Mammograph ic mass of left breast [id number] 1990621 R92.8 Reviewed recent mammo that req'd additional USWill await results to determine next steps Postmenopa usal osteopenia [id number] M85.80 [id number] Kathleen Bhat [facility] [address] [address] 03/20/2023 10:03:55 03/20/2023 14:54:51 Human papillomavirus deoxyribonucleic acid detected, high risk on cervical specimen [id number] R87.810 See procedure notes.Post -procedure instructio ns reviewed with understand ing verbalized .Will contact with results & next steps in plan of care. Counseled on Pap/HPV guidelines /Testing/R esults with understand ing verbalized .All questions answered to patient satisfacti on. Booklet & additional resources regarding pap smear/HPV/ Pap results given. [email or web address] [email or web address] [email or web address] g-abnormal -hpv-and-p ap-test-re sults/unde rstanding- cervical-c lindsey.pdf [id number] [facility] [address],[place] [address] 02/22/2024 09:59:15 02/22/2024 12:05:58 Gynecologic examination 60724976 Z01.419 Z11.51 Take Calcium with Vitamin D 12-1500mg daily. Do monthly self breast exams. It is advised to get annual flu shot in the fall and she could obtain at [facility] or [facility] care clinic. If you haven't received the Tdap vaccine in the last 10 years you should obtain one as well. Have mammogram yearly, bone density every 2-3 years and colonoscop y every 5-10 years depending on findings and history. Engage in daily exercise of low impact aerobic exercise 45-60 minutes 4-5 times weekly. Avoid tobacco and illicit drugs as well as using moderation with alcohol intake less than 1-2 8 oz beverages daily. This lifestyle behavior pattern will lead to less health conditions and longer life span. If BMI greater than 25 weight watchers or dietary consult advised. Questions have been answered. Patient appears to understand instructio ns, but if you have any further questions call or respond to this email Pap/hpv sentSTD Screen sentGeneti c Screen discussedC olon Screen UTD PCPDexa Screen PCPRoutine Labs PCPMammo UTD Screening mammography 24 [id number] Z12.31 Has order from PCP and appt set up Body mass index 40+ - severely obese 852408215 Z68.41 Consider medical weight loss management , RD, dietary changes, increase activity; can have recent labs faxed or delivered for further evaluation .Uncertain what her insurance will cover in regards to medical weight loss management . Reduced libido 2223364 R 68.82 N95.1 Today we discussed EBP recommenda tions for >60yo post-menop ause care.Contr aindicated estrogen at this time as she is >10yrs from [facility]; and has also not been on HRT before.We could consider a very low dose Testim or compounded T-cream from [facility] pharmacy; Baseline Total Testostero ne level to help track that levels are staying within female ranges that we have at this time.Small dose of prometrium as a possible addition.W e also need to consider SSRI/SNRI/ [place]/Sup plements from [facility] as other alternativ es as well. Once she brings recently updated labs in we can decide our next steps in this plan of care. [id number] NIKUNJ CRAVEN MD [facility] [address] [address] 07/15/2024 18:03:59 07/16/2024 07:34:08 Reduced libido 8557447 R68.82 - zero libido after menopause, now vastly improved with testim- was also started on progestero ne supplement ation, happy with this, no side effects- will draw labs for testostero ne levels, LFTs, and cholestero l- ok to continue- recommend sleep study evaluation for fatigue prior to increasing hormone dosage as testostero ne has not been shown to be of much value in fatigue treatment- rtc for WWE [id number] MIRIAN Amaya [facility] [address] [address] 02/24/2025 10:00:04 02/24/2025 12:17:49 Gynecologic examination [id number] Z01.419 WWEpostmen opausalPap - done todaySTI screen - declinedMa mmogram - order givenColon cancer screening - PCPDexa - order givenRouti ne labs - UTD/PCPRTC in 1 yr or sooner if needed BP precaution s reviewed, encouraged PCP f/u Do monthly self breast exams.It is advised to get annual flu shot in the fall and she could obtain at local pharmacy. If you haven't received the Tdap vaccine in the last 10 years you should obtain one as well.Have mammogram yearly, bone density every 2-3 years and stay up to date on colon cancer screening. Engage in regular exercise. Avoid tobacco and illicit drugs. This lifestyle behavior pattern will lead to less health conditions and longer life span. If BMI greater than 25 dietary consult advised.Qu estions have been answered. Screening mammography 24 848927 Z12.31 Screening for osteoporosis 880968852 Z13.820 Drug therapy finding 309 550333 Z79.890 Discussed symptoms and management options reviewedop ts to continue topical testostero ne (r/b/a reviewed), testostero ne level ordered todaywill increase progestero ne to 200mg nightly, rx sent, r/b/a reviewed Time spent in visit is a total of 45 mins with at least 50% of visit consisting of counseling and review of plan of care. [id number] MIRIAN Amaya [place] [address],[facility] [address] 01/26/2025 09:58:50 01/26/2025 10:36:47 Left before being seen [id number] Z53.21 Due for WWE 02/21/2025 [id number] Marlo Woo MD [place] [address],[facility] [address] 03/26/2025 11:24:47 03/30/2025 08:55:35 Abnormal cervical Papanicolaou smear [id number] R87.619 colposcopi c exam was performed. It was unsatisfac tory. ECC was performed. She tolerated it well. Health Concerns Section Related Observation LastModified by Organization Detai ls LastModified Time None Recorded Concern Status LastModified by Organization Details LastModified Time None Recorded Advance Directives Directive None Recorded Payers Insurance Date Sequence Insurance Name Policy Number Policy Schwartz Covered Member ID Schwartz Member ID Guarantor Name 01/25/2025 1 [facility] PRIOR TO 03/31/2021 (MEDICAID REPLACEMENT - HMO) Dariana Huddleston [id number] Dariana Huddleston 07/15/2020 *SELF PAY* Xin Huddleston 03/30/2025 1 [facility] - DOS ON OR AFTER 21 (MEDICAID REPLACEMENT - HMO) Dariana Huddleston [id number] Dariana Huddleston Notes Date Note Type Note Provider Name and Address Organization Details Recorded Time 4 text/html Annual Foundation Coordinator Post-MenopausalReported bypatient.Menopausal Symptoms:no menopausal symptoms; normal vaginal lubrication Vaginal Bleeding:history of menopause having occurred; no history of post menopausal bleeding Urinary Symptoms:no hematuria; no incontinence; no nocturia; no urinary frequency Vulva:no genital lesion; no vulvar atrophy Vagina:normal vaginal discharge; no vaginal atrophy Breast:no breast lump; no nipple discharge; no breast pain Sexual Complaints:no sexual complaints Psychological Symptoms:no depression; no anxiety Preventive Measures:encourage regular mammograms starting age 40; encourage self breast examination; encourage regular exercise; encourage no tobacco use; needs to schedule mammogram; history of recent colonoscopy Kathleen Bhat, CHRISTOPHER- [address], [place], [address], [facility] 02/22/2024 12:00:53 4 text/html Patient presents for med check of Testim. She was seen 01/2024, and reported zero libido. She was started on Testim at that time and she reports a vast improvement in her libido. She denies side effects. She does report low energy and fatigue, however is undergoing testing soon for sleep apnea. Overall she is very happy with her results and would like to continue. NIKUNJ CRAVEN MD [address], [place], [address], [facility] 07/15/2024 18:37:28 5 text/html Annual Foundation Coordinator Post-MenopausalReported bypatient.Menopausal Symptoms:no menopausal symptoms; normal vaginal lubrication Vaginal Bleeding:history of menopause having occurred; no history of post menopausal bleeding Urinary Symptoms:no hematuria; no incontinence; no nocturia; no urinary frequency Vulva:no genital lesion; no vulvar atrophy Vagina:normal vaginal discharge; no vaginal atrophy Breast:no breast lump; no nipple discharge; no breast pain Sexual Complaints:no sexual complaints Psychological Symptoms:no depression; no anxiety Preventive Measures:encourage regular mammograms starting age 40; encourage self breast examination; encourage regular exerciseNotes:64yo wwepostmenopausallast pap 01/2024 : nilm, HPV (+)pap 2022 nilm, HPV (+) / colpo 2022 : benignmammogram last exa last 2 yrs ago, osteopeniacolonoscopy PCP on nightly prometrium and daily testosterone topical gelhas helped with libido, fatigue, energy but feels as if it is not working as well as it once was Lo beasley, [facility] 02/24/2025 12:35:44 5 text/html patient presents for colposcopic examination. The procedure was explained to the patient in detail. She understands the procedure. She understands the risks, benefits, and alternatives. She has completed the informed consent process and is ready to proceed. Marlo Woo MD [address], [place], [address], [facility] 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 Status 07/14/20 1 CLOSED Fetus Data First Name Last Name Admitted to NICU Weight (g) Sex Living Outcome Pediatric Complications Fetus ID Race Codes Race Delivery Type 5.88 8704 M Prematur e 5350 Repeat Sebastian Calculation Initial Sebastian Date Initial Exam Date Initial Exam Provider Initial Ultrasound Date Last Menstrual Period Date Ultra Sound Weeks Gestation 0 Eighteen To Twenty Week Sebastian Update Ultra Sound Date Fundal Height At Umbil Quickening Date Ultra Sound Latest Weeks Gestation Final Sebastian Confirmed By Final Sebastian Confirmed Date Final Sebastian Date Ultra Sound Latest Days Gestation 0 0 Menstrual History Last Menstrual Date Menses Monthly On Bcp Conception Prior Menses Frequency Hcg Plus Date Menarche Onset Age Delivery Information Delivery Date Delivery Type Labor Anesthesia Weeks Gestation Incision Type Labor Labor Length Hrs Delivered By Post Complications Tubal Sterilization Discharge Date Comments 6 34 preclmap s ia Discharge Information Feeding Method Contraceptive Method Maternal HG B and HCT Levels Ob Episode Information Episode Created Date Number of Fetuses Patient Bloodtype Patient rh Status Prepregnancy Weight lbs Domestic Partner Domestic Partner Phone Father Name Dairy Processing Equipment Operator Status 07/14/20 20 1 CLOSED Fetus Data First Name Last Name Admitted to NICU Weight (g) Sex Living Outcome Pediatric Complications Fetus ID Race Codes Race Delivery Type 3175.14 4 M Full Term 5351 Repeat Sebastian Calculation Initial Sebastian Date Initial Exam Date Initial Exam Provider Initial Ultrasound Date Last Menstrual Period Date Ultra Sound Weeks Gestation 0 Eighteen To Twenty Week Sebastian Update Ultra Sound Date Fundal Height At Umbil Quickening Date Ultra Sound Latest Weeks Gestation Final Sebastian Confirmed By Final Sebastian Confirmed Date Final Sebastian Date Ultra Sound Latest Days Gestation 0 0 Menstrual History Last Menstrual Date Menses Monthly On Bcp Conception Prior Menses Frequency Hcg Plus Date Menarche Onset Age Delivery Information Delivery Date Delivery Type Labor Anesthesia Weeks Gestation Incision Type Labor Labor Length Hrs Delivered By Post Complications Tubal Sterilization Discharge Date Comments 2 40 Discharge Information Feeding Method Contraceptive Method Maternal HG B and HCT Levels Ob Episode Information Episode Created Date Number of Fetuses Patient Bloodtype Patient rh Status Prepregnancy Weight lbs Domestic Partner Domestic Partner Phone Father Name Dairy Processing Equipment Operator Status 07/14/20 20 1 CLOSED Fetus Data First Name Last Name Admitted to NICU Weight (g) Sex Living Outcome Pediatric Complications Fetus ID Race Codes Race Delivery Type 1445.59 7704 F Prematur e 5349 Primary Sebastian Calculation Initial Sebastian Date Initial Exam Date Initial Exam Provider Initial Ultrasound Date Last Menstrual Period Date Ultra Sound Weeks Gestation 0 Eighteen To Twenty Week Sebastian Update Ultra Sound Date Fundal Height At Umbil Quickening Date Ultra Sound Latest Weeks Gestation Final Sebastian Confirmed By Final Sebastian Confirmed Date Final Sebastian Date Ultra Sound Latest Days Gestation 0 0 Menstrual History Last Menstrual Date Menses Monthly On Bcp Conception Prior Menses Frequency Hcg Plus Date Menarche Onset Age Delivery Information Delivery Date Delivery Type Labor Anesthesia Weeks Gestation Incision Type Labor Labor Length Hrs Delivered By Post Complications Tubal Sterilization Discharge Date Comments 0 34 preeclam p [place] Discharge Information Feeding Method Contraceptive Method Maternal HG B and HCT Levels
== END 2025-04-16 15:21 | disposition home or self-care (01) ==
PROVIDERS: PCP Physician Assistant; Visit Provider Physician Assistant
DX: Z12.31 Encounter for screening mammogram for malignant neoplasm of breast (principal)
CPT/HCPCS: 77063; 77067